=== PATIENT | male | born 1945 | race Caucasian/White ===

== ENCOUNTER 2017-07-22 13:55 | Inpatient (IN) | payer BC ==
--- NOTE | 2017-07-22 14:10 | PDOC ---
History of Present Illness - History of Present Illness Initial Comments: . 07/22/17 14:49 The patient is a 71 yo Male with a significant past medical history of renal cell carcinoma and bladder CA (s/p bladder removal July 2016), who presents to the ED sent by Dr. Mirella Lee for admission of persistent diffuse headache and slight confusion for about a month. As per Dr. Lee, the patient had an MRI revealing mets to the brain. The patient denies follow-up with oncologist s/ p bladder removal a year ago. The patient presents with his neighbor who was coincidentally in the doctor's office with the patient and kindly brought him to the ED as per Dr. Lee's request. Allergies: NKDA PSHx: Bladder removal (2015) PCP: Dr. Mirella Lee <Emma Castellanos - Last Filed: 07/22/17 17:02> <Levi Reveles - Last Filed: 07/22/17 18:21> - General Chief Complaint: Headache Stated Complaint: admission SENT BY PCP, Time Seen by Provider: 07/22/17 14:07 Past History <Emma Castellanos - Last Filed: 07/22/17 17:02> - Past Medical History Cancer: Yes (bladder, brain mets) - Suicide/Smoking/Psychosocial Hx Smoking History: Former smoker Have you smoked in the past 12 months: Yes If you are a former smoker, when did you quit?: 15YRS AGO Information on smoking cessation initiated: No Hx Alcohol Use: No Drug/Substance Use Hx: No Substance Use Type: None Hx Substance Use Treatment: No <Levi Reveles - Last Filed: 07/22/17 18:21> - Past Medical History Allergies/Adverse Reactions: Allergies Allergy/AdvReac Type Severity Reaction Status Date / Time No Known Drug Allergies Allergy Verified 07/22/17 13:58 Home Medications: Ambulatory Orders NK [No Known Home Medication] 06/12/16 Review of Systems - Review of Systems Able to Perform ROS?: Yes Comments:: 07/22/17 15:07 GENERAL/CONSTITUTIONAL: No fever or chills. No weakness. HEAD, EYES, EARS, NOSE AND THROAT: No change in vision. No ear pain or discharge. No sore throat. CARDIOVASCULAR: No chest pain or shortness of breath. RESPIRATORY: No cough, wheezing, or hemoptysis. GASTROINTESTINAL: No nausea, vomiting, diarrhea or constipation. GENITOURINARY: No dysuria, frequency, or change in urination. MUSCULOSKELETAL: No joint or muscle swelling or pain. No neck or back pain. SKIN: No rash NEUROLOGIC: (+)diffuse headache. No vertigo, loss of consciousness, or change in strength/sensation. ENDOCRINE: No increased thirst. No abnormal weight change. HEMATOLOGIC/LYMPHATIC: No anemia, easy bleeding, or history of blood clots. ALLERGIC/IMMUNOLOGIC: No hives or skin allergy. <Emma Castellanos - Last Filed: 07/22/17 17:02> *Physical Exam - Vital Signs Last Vital Signs Temp Pulse Resp BP Pulse Ox 99.4 F 107 H 18 125/71 100 07/22/17 13:58 07/22/17 13:58 07/22/17 13:58 07/22/17 13:58 07/22/17 13:58 - Physical Exam Comments: 07/22/17 15:09 GENERAL: (+) confused and repeating himself. Awake, alert. in no acute distress HEAD: No signs of trauma EYES: PERRLA, EOMI, sclera anicteric, conjunctiva clear ENT: Auricles normal inspection, hearing grossly normal, nares patent, oropharynx clear without exudates. Moist mucosa NECK: Normal ROM, supple, no lymphadenopathy, JVD, or masses LUNGS: Breath sounds equal, clear to auscultation bilaterally. No wheezes, and no crackles HEART: Regular rate and rhythm, normal S1 and S2, no murmurs, rubs or gallops ABDOMEN: Soft, nontender, normoactive bowel sounds. No guarding, no rebound. No masses EXTREMITIES: Normal range of motion, no edema. No clubbing or cyanosis. No cords, erythema, or tenderness NEUROLOGICAL: Cranial nerves II through XII grossly intact. Normal speech, normal gait SKIN: Warm, Dry, normal turgor, no rashes or lesions noted. <Emma Castellanos - Last Filed: 07/22/17 17:02> - Vital Signs Last Vital Signs Temp Pulse Resp BP Pulse Ox 99.4 F 107 H 18 125/71 100 07/22/17 13:58 07/22/17 13:58 07/22/17 13:58 07/22/17 13:58 07/22/17 13:58 <Levi Reveles - Last Filed: 07/22/17 18:21> ED Treatment Course - LABORATORY CBC & Chemistry Diagram: 07/22/17 15:10 07/22/17 15:10 - RADIOLOGY Radiograph Interpretation: 07/22/17 17:01 EXAM#: TYPE/EXAM: RESULT: [id number] CT/ABDOMEN PELVIS CT W/O CONTR [id number] CT/CHEST CT WITHOUT CONTRAST [id number] CT/SOFT TISSUE NECK CT W/O CONTR History of bladder cancer, postop and metastasis CT scan of the neck without intravenous contrast. Contiguous axial scans were obtained followed by coronal and sagittal reconstruction images. The airway is patent and symmetric without narrowing. Parapharyngeal space is clear. Both parotid and both submandibular glands appear unremarkable. No gross enlarged lymph nodes or discrete mass lesion are identified on this noncontrast exam. Small calcified atheromatous plaques at the right and a tiny calcified plaque at the left common carotid bifurcation. Normal size thyroid gland. There is moderate to marked degenerative disc disease at C3-C4 level with anterior and posterior spur formation moderately narrowing the left foramen. There is also minimal retrolisthesis of C3 over C4 likely degenerative. C4-C5 mild degenerative disc disease. C5-C6 moderate degenerative disc disease with mild posterior spur formation. C6-C7 moderate degenerative disc disease with mild posterior spur formation slightly narrowing the neural foramina. Impression: See discussion above. No gross discrete mass lesion or enlarged lymph nodes are identified on this noncontrast exam. Minimal retrolisthesis of C3 over C4, likely degenerative. Multilevel degenerative disc disease in the cervical spine, as described above. No gross focal bone destruction or sclerotic lesion is identified. Please refer to prior bone scan results dated 07/18/2017 CT scan of the chest, abdomen and pelvis without intravenous and oral contrast. Contiguous axial scans were obtained followed with coronal/ sagittal reconstruction images. Compared to prior noncontrast CT scan of the abdomen and pelvis dated 06/05/2016 In the chest, the heart is within normal limits in size. Calcification of the coronary arteries are present. There is minimal pericardial effusion. A right paratracheal lymph node is present measuring 1.7 cm. There is soft tissue fullness anterior to the right mainstem bronchus suggestive of lymphadenopathy, as well that could not be clearly evaluated due to lack of intravenous contrast. There is also prominence of the right hilum suggestive of lymphadenopathy. There is an approximately 2.1 cm pleural-based nodule in the right upper lobe, posteriorly laterally. Another adjacent smaller nodule in the right upper lobe, anteriorly measuring 4.5 mm Other smaller pleural-based nodules are present in the right middle and right lower lobe with the largest measuring 1.4 cm. 6.5 mm nodule in the left lower lobe, laterally with a 1.2 cm nodule in its superior segment. A few nodules in the left upper lobe with the largest measuring 6 mm abutting the fissure. There are mild biapical pleural thickening and small bulla. Mild atelectatic changes in the dependent portion of the right lower lobe with mild pleural thickening. In the abdomen and pelvis, there are multiple faint hypodensities in the liver with the largest in the right hepatic lobe, inferiorly measuring 5.7 cm that are highly suspicious for metastasis. Partially distended stomach limiting evaluation of its wall. Gallbladder is adequately distended with questionable thickening of its wall at the fundus. No gross gallstones are identified. The spleen, pancreas, both adrenal glands and kidneys appear unremarkable. There is mild stranding of the perinephric fat, bilaterally.. Normal size abdominal aorta with atheromatous plaques. There is no evidence of small bowel obstruction. A divergent ileal conduit is seen in the right lower anterior abdomen/pelvic wall. Multiple surgical sutures around the bowel loops in the right hemipelvis. Patient is status post urinary bladder resection. Normal- appearing appendix. Moderate amount of fecal residue in the colon without wall thickening. No free fluid or free air is identified in the abdomen pelvis. Multiple subcentimeter nodular densities in the mesentery is most of which may represent vessels. Cannot rule out subcentimeter mesenteric lymph nodes. There are also subcentimeter retroperitoneal nodular densities likely representing lymph nodes. Evaluation of the bones demonstrates a lytic lesion in the right inferior pubic ramus, medially. A lytic lesion in the left superior pubic ramus , medially at the level of the symphysis pubis. There is also suggestion of a lytic lesion in the left femoral neck subcentimeter sclerotic density in the right iliac bone, posteriorly there is also a tiny sclerotic density in the left pedicle of L3. Deformity in the posterior arch of left 11th rib, likely due to old trauma. No gross focal rib lesion/bone destruction is identified. Focal lytic lesion in T8 vertebral body, posteriorly measuring 1.8 cm Impression: Limited examination due to lack of oral and intravenous contrast administration. Bilateral pulmonary nodules compatible with metastasis. Mediastinal lymphadenopathy. Multiple hypodense liver lesions that are highly suspicious for metastasis. Likely subcentimeter mesenteric and retroperitoneal lymph nodes. The adrenal glands are not enlarged. Status post urinary bladder resection. An ileostomy is present in the right upper pelvic wall. There is no evidence of hydronephrosis. Bone metastasis, as described above. Correlate clinically to determine further evaluation and follow -up. Reported By: Ramonita Charles MD 07/22/17 1700 <Emma Castellanos - Last Filed: 07/22/17 17:02> - LABORATORY CBC & Chemistry Diagram: 07/22/17 15:10 07/22/17 15:10 <Levi Reveles - Last Filed: 07/22/17 18:21> Medical Decision Making - Medical Decision Making 07/22/17 17:04 The patient's case was discussed with Dr. Mirella Lee. Consult for neurology or neurosurgery was suggested by me to Dr. Lee, however , Dr. Lee only requests consult to oncologist, Dr. Joseph. <Emma Castellanos - Last Filed: 07/22/17 17:02> *DC/Admit/Observation/Transfer - Attestations Scribe Attestion: 07/22/17 15:12 Documentation prepared by Emma Castellanos, acting as medical underwriter for Levi Reveles DO <Emma Castellanos - Last Filed: 07/22/17 17:02> - Discharge Dispostion Admit: Yes - Attestations Physician Attestion: 07/22/17 14:10 I, Dr. Levi Reveles, attest that this document has been prepared under my direction and personally reviewed by me in its entirety. I further attest, that it accurately reflects all work, treatment, procedures and medical decision -making performed by me. <Levi Reveles - Last Filed: 07/22/17 18:21> Diagnosis at time of Disposition: Confusion, Malignant neoplasm metastatic from bladder Headache Qualifiers: Headache type: unspecified Headache chronicity pattern: unspecified pattern Intractability: intractable Qualified Code(s): R51 - Headache; R51 - Headache - Discharge Dispostion Condition at time of disposition: Improved - Referrals Referrals: Mirella Lee MD [Primary Care Provider] -
[2017-07-22] MEDS ORDERED: ONDANSETRON 4 MG/2 ML VIAL IVPUSH ONE (14:49)
[2017-07-22] MEDS ORDERED: HYDROmorphone HCL CARPU-JECT 1 MG/1 ML DISP.SYRIN IVPUSH ONE (14:49)
[2017-07-22] MEDS ORDERED: HYDROmorphone HCL CARPU-JECT 1 MG/1 ML DISP.SYRIN ONE (14:58)
[2017-07-22] MEDS ORDERED: ONDANSETRON 4 MG/2 ML VIAL ONE ×2 (14:58→14:59)
[2017-07-22 15:21] LABS: EOSINOPHIL 0.5 % (0-4.5); MCH 25.8 pg (25.7-33.7); MCHC 32.1 g/dl (32.0-35.9); MEAN CELL VOLUME 80.3 fl (80-96); MEAN PLT VOLUME 7.2 fl (7.5-11.1); NEUTROPHILS 87.4 % (42.8-82.8); PLATELET COUNT 390 K/MM3 (134-434); RDW 14.4 % (11.9-15.9)
[2017-07-22 15:25] LABS: URINE APPEARANCE CLOUDY; URINE BILIRUBIN NEGATIVE (NEGATIVE); URINE BLOOD NEGATIVE (NEGATIVE); URINE COLOR YELLOW; URINE GLUCOSE (UA) NEGATIVE (NEGATIVE); URINE KETONE NEGATIVE (NEGATIVE); URINE NITRITE POSITIVE (NEGATIVE); URINE PROTEIN 1+ (NEGATIVE); URINE UROBILINOGEN NEGATIVE mg/dL (0.2-1.0)
[2017-07-22 15:46] LABS: ALBUMIN 2.4 g/dl (3.4-5.0); ALK PHOS 396 U/L (45-117); ANION GAP 9 (8-16); BILIRUBIN,TOTAL 0.3 mg/dL (0.2-1.0); CALCIUM 8.7 mg/dL (8.5-10.1); CO2 28 mmol/L (21-32); CREATININE 1.1 mg/dL (0.7-1.3); GLUCOSE,RANDOM 117 mg/dL (74-106); SGOT/AST 24 U/L (15-37); SGPT/ALT 30 U/L (12-78); TOT PROT 6.3 g/dl (6.4-8.2)
[2017-07-22 17:15] LABS: URINE BACTERIA RARE /hpf (NONE SEEN); URINE MUCUS RARE; URINE RBC 3 /hpf (0-3); URINE WBC 7 /hpf (3-5)
[2017-07-22 18:13] LABS: INR 1.24 (0.82-1.09); PROTHROMBIN TIME (PATIENT) 13.6 SEC (9.98-11.88)
[2017-07-22 20:31] LABS: URINE LEUK ESTERASE Negative (NEGATIVE)
[2017-07-22] MEDS ORDERED: DEXAMETHASONE SOD PHOSPHATE 10 MG/1 ML VIAL IVPB ONE (20:51)
[2017-07-22] MEDS ORDERED: DEXAMETHASONE SOD PHOSPHATE 10 MG/1 ML VIAL ONE (20:54)
[2017-07-22] MEDS ORDERED: ACETAMINOPHEN WITH CODEINE 300MG/30MG TABLET PO PRN (23:03)
[2017-07-22 23:43] VITALS: BMI 23.2
[2017-07-23] MEDS: DEXAMETHASONE SOD PHOSPHATE 4 MG/1 ML VIAL IVPB SCH ×4 (03:14→21:12)
--- NOTE | 2017-07-23 07:39 | PN ---
Progress Note (short form) - Note Progress Note: NEUROSURGERY CONSULT DICTATED h/o renal cell carcinoma and undifferentiated CA of bladder (s/p bladder removal July [address] [facility]) was admitted for persistent diffuse headache and slight confusion for about one month. MRI showed 2 mets to the brain. The patient denies follow-up with oncologist s/p bladder removal a year ago. No Sz, No N/V. Denies weakness, numbness, ataxia. Denies F/C. Had frontal H /a x 1 month and mild mental changes reportedly. + cough with discharge. PE: AF, VSS HEENT- subcutaneous/skull prominence over midline/R parasagittal lesion; Neck- supple; Cor- RRR; Chest- CTA B; Abd- benign, ileostomy osteomy bag; Ext- No sign of DVT A/A/Ox4 CN- intact; Motor- 5/5; Sensation- intact LT; DTR- hyporeflexia; Cerebellar- intact B FTN; Gait- not tested for safety reasons Brain MRI with/without- L peripheral cerebellar cystic rim enhancing lesion; R parietal skull lesion with epidural extension near superior sagittal sinus with some encroachment; mild periventricular small vessel dz; no significant edema CT Chest- multiple lung nodules c/w mets CT abd- multiple hypodense areas of liver c/w mets; T8 lytic met; pubis and iliac bone mets 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
--- NOTE | 2017-07-23 08:59 | CONS ---
DATE OF CONSULTATION: DATE OF DICTATION: 07/23/2017 REQUESTING PHYSICIAN: Mirella Lee MD ENGINEERING GROUP MANAGER: Toni Fatima MD, Neurosurgery. CHIEF COMPLAINT: Brain metastases. HISTORY OF PRESENT ILLNESS: The patient is a 71-year-old right-handed male with history of renal cell carcinoma and differentiated carcinoma of the bladder status post bladder resection with ileal conduit in July of 2016 at [facility], who complains of 1-month history of diffuse frontal headaches as well as slight confusion. The patient has not received chemotherapy after surgery and has not received radiation treatment either. A brain MRI was performed on an outpatient basis and it showed 2 metastases at least. The patient denies any nausea or vomiting, seizure activity, weakness, numbness, ataxia. He has no fevers or chills. He does have some cough with some mucousy discharge. He was a smoker up to 16 years ago when he quit. He was smoking a pack a day for about 30 years prior to that. PAST MEDICAL HISTORY: Significant for renal cell carcinoma, undifferentiated carcinoma of the bladder status post bladder resection and ileal conduit. CURRENT MEDICATIONS: Include dexamethasone, Tylenol with Codeine, and Protonix. ALLERGIES: There are no known drug allergies. FAMILY HISTORY: Noncontributory. SOCIAL HISTORY: He is retired. He is an [id number]. He drinks alcohol socially. He lives at home. REVIEW OF SYSTEMS: Otherwise negative for other major constitutional, head and neck, cardiovascular, pulmonary, gastrointestinal, genitourinary, endocrinologic, neurologic, or psychologic problems except for the above. He states that he has noted a bony subcutaneous palpable nodule over the midline and posteriorly over the parietal region for the past month or so. PHYSICAL EXAMINATION: Vital signs: Temperature is 98.4, blood pressure is 133/69, pulse rate is 83, O2 saturation 96% on room air.. HEENT: Examination demonstrates a relatively firm skull-based nodule near the parietal region near the midline and slightly to the right. Neck: Supple with no carotid bruit. Coronary: Examination demonstrates a regular rhythm. Lungs: Clear bilaterally. Abdomen: Benign. Extremities: Examination shows no signs of DVT. Neurologic: He is awake, alert, and oriented x4. Speech is fluent. Cranial nerve examination is intact 2-12. Motor examination shows 5/5 strength without drift. Sensory examination intact to light touch. Deep tendon reflexes are hyporeflexive throughout. There is no pathologic long tract sign. Gait was not tested for safety reasons. Cerebellar examination shows intact [id number] examination bilaterally. LABORATORY EXAMINATION: Shows white blood cell count of 16, hemoglobin is 11.1 , and platelet count is 390,000. INR is 1.24. Serum sodium is 134, potassium is 4.3 , BUN is 17, creatinine is 1.1. LFTs shows elevated alkaline phosphatase to 396. Total protein 6.3. Albumin is 2.4. MRI of the brain performed on July 17 with and without gadolinium demonstrated a osseous 3 x 2.5 cm lesion near the parasagittal right parietal skull. There is epidural extension that also encroaches on a superior sagittal sinus. There is a second enhancing lytic cystic lesion with rim enhancement posteriorly near the left cerebellum and midline. There is mild surrounding edema. There is no hydrocephalus. CT scan of the chest without contrast demonstrated multiple pulmonary nodules as well as mediastinal lymphadenopathy. There is also hypodense lesion in the liver consistent with metastasis. Mesentery and retroperitoneal lymph nodes were noted, as well. The ileostomy is noted in the right abdomen. Lytic lesion is noted in the right ileum, pubic symphysis, as well as small sclerotic density to the left L3 pedicle. A T8 vertebral lytic lesion is also noted. IMPRESSION: Multifocal metastases from likely bladder cancer from undifferentiated bladder cancer to the brain, skull, axial skeleton, lungs, and liver. RECOMMENDATIONS: The patient presents with 1-month history of increasing headache and some reported confusion. Unfortunately, he was found to have two intracranial lesions, one involving the left cerebellum in a parasagittal plane as well as one in the right parasagittal plane involving the right parietal skull extending to the epidural space, possibly invading the superior sagittal sinus. He also has visceral metastases likely to the liver, abdominal lymph nodes with abdominal lymph node invasion, as well as metastases.to the lungs with mediastinal nodes. CT scan with contrast is recommended to better delineate these lesions. If the patient does indeed have extensive metastatic disease (abdominal viscera and lungs), neurosurgical intervention would not be recommended. The patient is on Decadron for the cerebellar edema. I would recommend baseline medical and radiation oncology input for a coordinated treatment for his systemic disease and possible radiation for the brain metastases. The above was discussed with the patient at bedside and with Dr Lee. All questions were answered. TONI FATIMA M.D. BRANDY/[id number] LEONA
[2017-07-23] MEDS: PANTOPRAZOLE 40 MG TABLET (FP) PO SCH (09:06)
--- NOTE | 2017-07-23 09:23 | HP ---
DATE OF ADMISSION: 07/22/2017 DATE OF DICTATION: 07/23/2017 HISTORY OF PRESENT ILLNESS: This is a 71-year-old male known to have CA of the bladder. He got a bladder removal done about a year ago. After that, he did not want to do any treatment. He came to the office again a month ago with complaints of headache. Also, at that time, he was seen by of Dr. Fallon albert, the oncologist. MRI done showed extensive disease in the brain, and his headache was intractable, so, he got admitted yesterday. He had other body scans which showed extensive metastatic disease in the bones, kidney, lungs, all over the body. He lives alone. Of all his relatives, his sister is the closest relative. I have spoken to her about these findings. This morning he is telling that his headache is a little better. PHYSICAL EXAMINATION: Vital signs: BP is 130/70, pulse 80, respirations 20, temperature 98. HEENT: Unremarkable. Neck: supple. No JVD. Lungs: Clear. Heart: S1, S2 normal. No S3, S4. Abdomen: Soft. Extremities: Legs no edema. Neurologic: Grossly normal. Sometimes he is speaking irrelevantly. LABORATORY REPORTS: WBC 16, hemoglobin 11, hematocrit 34, platelets 390. Chemistry: Sodium 134, potassium 4.3, chloride 97, BUN 17, creatinine 1.1, alkaline phosphatase 396. CT of the chest showed enlarged lymph nodes. Multiple liver lesions are seen. Status post bladder resection. Bone metastases are seen. CT of the head showed multiple lesions, metastatic, including the skull, is involved. IMPRESSION: Cancer of the bladder status post resection, multiple metastatic lesions. PLAN: Oncology consult, neurology consult, neurosurgery consult, and Tylenol for headache. ENOCH SCRUGGS M.D. [id number]
--- NOTE | 2017-07-23 10:01 | CONSULT ---
Consult - text type - Consultation Consultation Note: Neurology History of Present Illness The patient is a 71 yo Male with a significant past medical history of renal cell carcinoma and bladder CA (s/p bladder removal July 2016), who presents to the ED sent by Dr. Mirella Lee for admission of persistent diffuse headache and slight confusion for about a month. Patient had an MRI brain 07/17/17 and showed L cerebellar 1.9X 2X 0.8cm met along with R parietal 3.1 X 2.6 cm met. He has been put on Decadron. NSGY, Dr. Boni Ware consulted and note reviewed. During my encounter, no focal deficits but perseverates on having something done to take it out as soon as possible. Explained plan to patient and desire for oncology involvement. Reassured him goal of care is to be expeditious as possible. Allergies: NKDA PSHx: Bladder removal (2015) PCP: Dr. Mirella Lee - General Chief Complaint: Headache Stated Complaint: admission SENT BY PCP, Time Seen by Provider: 07/22/17 14:07 Past History - Past Medical History Cancer: Yes (bladder, brain mets) - Suicide/Smoking/Psychosocial Hx Smoking History: Former smoker Have you smoked in the past 12 months: Yes If you are a former smoker, when did you quit?: 15YRS AGO Information on smoking cessation initiated: No Hx Alcohol Use: No Drug/Substance Use Hx: No Substance Use Type: None Hx Substance Use Treatment: No - Past Medical History Allergies/Adverse Reactions: Allergies Allergy/AdvReac Type Severity Reaction Status Date / Time No Known Drug Allergies Allergy Verified 07/22/17 13:58 Home Medications: Ambulatory Orders NK [No Known Home Medication] 06/12/16 Review of Systems GENERAL/CONSTITUTIONAL: No fever or chills. No weakness. HEAD, EYES, EARS, NOSE AND THROAT: No change in vision. No ear pain or discharge. No sore throat. CARDIOVASCULAR: No chest pain or shortness of breath. RESPIRATORY: No cough, wheezing, or hemoptysis. GASTROINTESTINAL: No nausea, vomiting, diarrhea or constipation. GENITOURINARY: No dysuria, frequency, or change in urination. MUSCULOSKELETAL: No joint or muscle swelling or pain. No neck or back pain. SKIN: No rash NEUROLOGIC: (+)diffuse headache. No vertigo, loss of consciousness, or change in strength/sensation. ENDOCRINE: No increased thirst. No abnormal weight change. HEMATOLOGIC/LYMPHATIC: No anemia, easy bleeding, or history of blood clots. ALLERGIC/IMMUNOLOGIC: No hives or skin allergy. *Physical Exam Vital Signs Temperature 98.4 F 07/23/17 05:46 Pulse Rate 83 07/23/17 05:46 Respiratory Rate 18 07/23/17 05:46 Blood Pressure 133/69 07/23/17 05:46 O2 Sat by Pulse Oximetry (%) 96 07/23/17 04:00 GENERAL: (+) repeating himself. Awake, alert. in no acute distress HEAD: No signs of trauma EYES: PERRLA, EOMI, sclera anicteric, conjunctiva clear ENT: Auricles normal inspection, hearing grossly normal, nares patent, oropharynx clear without exudates. Moist mucosa NECK: Normal ROM, supple, no lymphadenopathy, JVD, or masses LUNGS: Breath sounds equal, clear to auscultation bilaterally. No wheezes, and no crackles HEART: Regular rate and rhythm, normal S1 and S2, no murmurs, rubs or gallops ABDOMEN: Soft, nontender, normoactive bowel sounds. No guarding, no rebound. No masses EXTREMITIES: Normal range of motion, no edema. No clubbing or cyanosis. No cords, erythema, or tenderness NEUROLOGICAL: Cranial nerves II through XII grossly intact. Normal speech, no facial droop, strength intact b/l, sensory normal SKIN: Warm, Dry, normal turgor, no rashes or lesions noted. CBCD WBC 16.0 K/mm3 (4.0-10.0) H 07/22/17 15:10 RBC 4.30 M/mm3 (4.00-5.60) D 07/22/17 15:10 Hgb 11.1 GM/dL (11.7-16.9) L 07/22/17 15:10 Hct 34.6 % (35.4-49) L 07/22/17 15:10 MCV 80.3 fl (80-96) 07/22/17 15:10 MCHC 32.1 g/dl (32.0-35.9) 07/22/17 15:10 RDW 14.4 % (11.9-15.9) D 07/22/17 15:10 Plt Count 390 K/MM3 (134-434) D 07/22/17 15:10 MPV 7.2 fl (7.5-11.1) L 07/22/17 15:10 CMP Sodium 134 mmol/L (136-145) L 07/22/17 15:10 Potassium 4.3 mmol/L (3.5-5.1) 07/22/17 15:10 Chloride 97 mmol/L (98-107) L D 07/22/17 15:10 Carbon Dioxide 28 mmol/L (21-32) D 07/22/17 15:10 Anion Gap 9 (8-16) 07/22/17 15:10 BUN 17 mg/dL (7-18) D 07/22/17 15:10 Creatinine 1.1 mg/dL (0.7-1.3) D 07/22/17 15:10 Creat Clearance w eGFR > 60 (>60) 07/22/17 15:10 Calcium 8.7 mg/dL (8.5-10.1) 07/22/17 15:10 Total Bilirubin 0.3 mg/dL (0.2-1.0) 07/22/17 15:10 AST 24 U/L (15-37) D 07/22/17 15:10 ALT 30 U/L (12-78) D 07/22/17 15:10 Alkaline Phosphatase 396 U/L (45-117) H D 07/22/17 15:10 Total Protein 6.3 g/dl (6.4-8.2) L 07/22/17 15:10 Albumin 2.4 g/dl (3.4-5.0) L D 07/22/17 15:10 CT scan of the neck without intravenous contrast. Impression: No gross discrete mass lesion or enlarged lymph nodes are identified on this noncontrast exam. Minimal retrolisthesis of C3 over C4, likely degenerative. Multilevel degenerative disc disease in the cervical spine, as described above. No gross focal bone destruction or sclerotic lesion is identified. Please refer to prior bone scan results dated 07/18/2017 CT scan of the chest, abdomen and pelvis without intravenous and oral contrast. Impression: Limited examination due to lack of oral and intravenous contrast administration. Bilateral pulmonary nodules compatible with metastasis. Mediastinal lymphadenopathy. Multiple hypodense liver lesions that are highly suspicious for metastasis. Likely subcentimeter mesenteric and retroperitoneal lymph nodes. The adrenal glands are not enlarged. Status post urinary bladder resection. An ileostomy is present in the right upper pelvic wall. There is no evidence of hydronephrosis. Bone metastasis, as described above. Correlate clinically to determine further evaluation and follow-up. MRI brain reviewed, L cerebellar 1.9X 2X 0.8cm met along with R parietal 3.1 X 2.6 cm met Plan: 71 yo Male with a significant past medical history of renal cell carcinoma and bladder CA (s/p bladder removal July 2016), who presents to the ED sent by Dr. Mirella Lee for admission of persistent diffuse headache and slight confusion for about a month. Patient had an MRI brain 07/17/17 and showed L cerebellar 1.9X 2X 0.8cm met along with R parietal 3.1 X 2.6 cm met. During my encounter, no focal deficits but perseverates on having something done to take it out as soon as possible. Explained plan to patient and desire for oncology involvement. Reassured him goal of care is to be expeditious as possible. He has been put on Decadron. NSGY, Dr. Boni Ware consulted and note reviewed. Monitor glucose on steroids PPI Tension headaches, can give Tylenol, try to avoid sedatives for now Medical Oncology, Radiation Onc consult recommended
--- NOTE | 2017-07-23 10:38 | CONSULT ---
Consult Consult Specialty:: ONCOLOGY Reason for Consultation:: metastatic disease - History of Present Illness History of Present Illness: is a 71 year old male with history : Bladder cancer: diagnosed 2016. Muscle invasive. Did not get an[place]ietta-adjuvant chemotherapy. Underwent Radical cystectomy in 07/2016. He did NOT receive adjuvant chemotherapy. The pathological stage in 07/2016 was [id number]. He did not follow-up post surgery ( Care was at [facility]). In the above path report, prostate adeno ca was also diagnosed. He saw last month, had headaches, referred to us , he was seen by me in the office, and ordered a re-staging w.u to assess the state of the cancer. During the office visit, he was in denial when I explained the reason for the staging w/u as he explained that his cancer was "removed". As part of the imaging studies ordered, on 07/17 MRI brain was done consistent with brain mets. He was asked to come to the ER due to the results of the MR brain. In the ER, he underwent CT c/a/p and neck. consistent with widely metastatic disease. Patient seen and examined this am. Was seen by neuro surgery and neurology. Pt expresses wishes to be done everything as fast as they can be. He feels a "Little" better post dexamethasone and other pain meds. He denies any bowel or bladder issues. - History Source History Provided By: Patient, Medical Record Limitations to Obtaining History: No Limitations - Alcohol/Substance Use Hx Alcohol Use: No - Smoking History Smoking history: Former smoker Have you smoked in the past 12 months: Yes If you are a former smoker, when did you quit?: 15YRS AGO Home Medications - Allergies Allergies/Adverse Reactions: Allergies Allergy/AdvReac Type Severity Reaction Status Date / Time No Known Drug Allergies Allergy Verified 07/22/17 13:58 - Home Medications Home Medications: Ambulatory Orders NK [No Known Home Medication] 06/12/16 Family Disease History - Family Disease History Family History: Denies Review of Systems - Review of Systems Eyes: denies: Blurred Vision, Photophobia, Recent Change in Vision HENT: denies: Difficult Swallowing Neck: denies: Decreased ROM, Lumps Cardiovascular: denies: Chest Pain, Edema, Palpitations, Shortness of Breath Respiratory: reports: Cough Neurological: reports: Dizziness, Headache Hematology/Lymphatic: reports: No Symptoms Physical Exam Vital Signs: Vital Signs Temperature 98.4 F 07/23/17 05:46 Pulse Rate 83 07/23/17 05:46 Respiratory Rate 18 07/23/17 05:46 Blood Pressure 133/69 07/23/17 05:46 O2 Sat by Pulse Oximetry (%) 96 07/23/17 04:00 Constitutional: Yes: No Distress, Anxious Eyes: Yes: Conjunctiva Clear, EOM Intact HENT: Yes: Atraumatic, Normocephalic Neck: Yes: Supple, Trachea Midline Cardiovascular: Yes: Regular Rate and Rhythm Respiratory: Yes: Regular, CTA Bilaterally Gastrointestinal: Yes: Normal Bowel Sounds, Soft Musculoskeletal: No: Back Pain Edema: No Neurological: Yes: Alert, Oriented. No: Aphasia, Confusion Imaging - Results Cat Scan: Report Reviewed MRI: Report Reviewed Assessment/Plan 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 [id number]. ( did not receive Adjuvant chemotherapy) Prostate adenocarcinoma, on no treatment. Now with widely metastatic disease ( brain, bone, Liver, lung). -Likely metastatic bladder, but the biopsy indicated on first Progression, will order US guided Liver biopsy ( pt in agreement) . -Dexamethasone with PPI ppx -Appreciate Neuro and NSG consults, no surgical intervention -RadOnc consult ,to be discussed. -will need systemic chemotherapy going forward. -Multi disciplinary discussion needs to be done in 's case. -No ac for DVT ppx, active brain mets.
--- NOTE | 2017-07-23 15:47 | PN ---
Progress Note (short form) - Note Progress Note: Radiation Oncology (full consult dictated) Pt seen, chart/films reviewed. Likely recurrent bladder ca with mets to brain, calvarium/skeleton, liver, lung , nodes. Review surgical path from [facility]. Agree with bx for pathologic confirmation. Likely candidate for palliative RT to parietal calvarial and cerebellar mets. Cont decadron and analgesics. Cont neurologic monitoring. Palliative care consult.
--- NOTE | 2017-07-23 17:00 | CONS ---
DATE OF CONSULTATION: 07/23/2017 REFERRING PHYSICIAN: Crystal Calvillo M.D. REASON FOR CONSULTATION: Brain metastases. HISTORY OF PRESENT ILLNESS: The patient is a 71-year-old gentleman with a history of bladder cancer status post radical cystectomy with ileal conduit in July 2016 at [facility]. Stage was T4a N2. He received no adjuvant therapy. Of note, there was an incidental prostate cancer on the surgical pathology by report. Per the family, there was a history of cancer 10 years ago and unclear if it is the same cancer or a different cancer. He now presents with a 1-month history of frontal headaches and change in mental status as per the family. An MRI of the brain showed a 2-cm left cerebellar mass with surrounding edema and mass effect on the 4th ventricle and a 2.1-cm enhancing metastasis involving the right parietal bone with epidural invasion, with soft tissue mass involving the superior sagittal sinus. Bone scan confirmed uptake in the right skull metastases as well as the ribs and possibly right iliac bone. CT scan of the neck, chest, abdomen, and pelvis demonstrated diffuse metastases involving the lung, liver, bone, and lymph nodes of the mediastinum and retroperitoneal region. He was seen by neurosurgery, neurology and medical oncology services. He was started on Decadron. A liver biopsy is being considered for pathologic confirmation of recurrent malignancy. He reports that the headaches have improved since starting steroids. We were asked to evaluate for a role for radiation therapy. PAST MEDICAL HISTORY: As noted above. PAST SURGICAL HISTORY: As noted above. ALLERGIES: No known drug allergies. CURRENT MEDICATIONS: Decadron 4 mg every 6 hours, Tylenol No. 3 p.r.n., Protonix daily. SOCIAL HISTORY: He is unmarried, has no children. He has 13 siblings. He was born in [place]. His closest family member, his sister, lives in [place]. 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 He smoked for 30 years, 1 pack per day, until 15 years ago. He is a social alcohol drinker. FAMILY HISTORY: Denies history of malignancy. REVIEW OF SYSTEMS: Denies seizures, nausea, ataxia, blurry or double vision, paresthesias, or weakness. He reports a productive cough. PHYSICAL EXAMINATION: General: In no acute distress. Lying in the hospital bed. Appears agitated. Vital Signs: Temperature 98.2, blood pressure 126/72, pulse 88, respiratory rate 20. HEENT: Moist mucous membranes. Anicteric sclerae. Clear oral cavity. Neck: No adenopathy. Chest: Clear. Heart: Regular. Abdomen: Soft, nontender, with ileostomy bag. No palpable mass or adenopathy. Extremities: No peripheral edema. Musculoskeletal: No spine or CVA tenderness. Neurologic: Alert and oriented. Cranial nerves 2-12 are intact. No sensory level and sensation to light touch is intact. No pronator drift. Motor is 5/5 in all 4 extremities. Coordination is normal. Gait was not tested. PATHOLOGIC DATA: Pending review of prior surgical pathology report. LABORATORY DATA: WBC 16, hemoglobin 11.1, platelets 390,000. Electrolytes within normal limits. BUN 17, creatinine 1.1, calcium 8.7, alkaline phosphatase 396, albumin 2.4. RADIOLOGIC DATA: CT scans as noted above. MRI of the brain as noted above. Bone scan as noted above. IMPRESSION: A 71-year-old gentleman with history of locally advanced bladder cancer status post radical cystectomy and ileal conduit without adjuvant therapy, now with likely metastatic recurrence in the brain, calvarium, skeleton, liver, and lung. From a neurologic standpoint, he is stable on Decadron and headaches have improved. I agree with biopsy for pathologic confirmation of metastatic recurrence. Palliative radiation therapy to the calvarial and intracranial brain metastases will be further considered to help preserve his quality of life and prevent neurologic deterioration and . I would recommend continuing Decadron and analgesics. I spoke with his sister and [id number] at length following the interview. They informed me that the patient does not share much of his medical history with the rest of his family. They inquired about the possibility of a palliative care consult to discuss end of life goals and healthcare proxy, etc. I agree that palliative care consult would be appropriate. We will plan to review the surgical pathology from the cystectomy and follow up the biopsy results. Further treatment recommendations will follow these evaluations. Thank you for the courtesy of this consult. PETAR BENAVIDEZ M.D. MARK/[id number] MTDD
[2017-07-24] MEDS: DEXAMETHASONE SOD PHOSPHATE 4 MG/1 ML VIAL IVPB SCH ×4 (02:05→20:44)
[2017-07-24 07:13] LABS: MCH 25.6 pg (25.7-33.7); MCHC 31.9 g/dl (32.0-35.9); MEAN CELL VOLUME 80.1 fl (80-96); MEAN PLT VOLUME 6.8 fl (7.5-11.1); PLATELET COUNT 465 K/MM3 (134-434); RDW 14.3 % (11.9-15.9); WHITE BLOOD COUNT 18.9 K/mm3 (4.0-10.0)
[2017-07-24 07:31] LABS: INR 1.15 (0.82-1.09); PROTHROMBIN TIME (PATIENT) 12.6 SEC (9.98-11.88)
[2017-07-24 07:35] LABS: ACTIVATED PTT 28.4 SECONDS (26.9-34.4)
[2017-07-24 08:06] LABS: ALBUMIN 2.5 g/dl (3.4-5.0); ANION GAP 10 (8-16); CALCIUM 8.8 mg/dL (8.5-10.1); CO2 27 mmol/L (21-32); GLUCOSE,RANDOM 136 mg/dL (74-106)
[2017-07-24 08:13] LABS: ALK PHOS 461 U/L (45-117); BILIRUBIN,TOTAL 0.3 mg/dL (0.2-1.0); CREATININE 0.9 mg/dL (0.7-1.3); SGOT/AST 23 U/L (15-37); SGPT/ALT 36 U/L (12-78); TOT PROT 6.5 g/dl (6.4-8.2)
--- NOTE | 2017-07-24 08:33 | PN ---
Progress Note (short form) - Note Progress Note: NEUROSURGERY Some frontal headache. Denies weakness, numbness, ataxia. Denies F/C. + mild cough with mucous PE: AF, VSS HEENT- subcutaneous/skull prominence over midline/R parasagittal lesion; Neck- supple; Cor- RRR; Chest- CTA B; Abd- benign, ileostomy osteomy bag; Ext- No sign of DVT A/A/Ox4 CN- intact; Motor- 5/5; Sensation- intact LT; DTR- hyporeflexia; Cerebellar- intact B FTN; Gait- not tested for safety reasons Brain MRI with/without- L peripheral cerebellar cystic rim enhancing lesion; R parietal skull lesion with epidural extension near superior sagittal sinus with some encroachment; mild periventricular small vessel dz; no significant edema CT Chest- multiple lung nodules c/w mets CT abd- multiple hypodense areas of liver c/w mets; T8 lytic met; pubis and iliac bone mets 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
[2017-07-24] MEDS: PANTOPRAZOLE 40 MG TABLET (FP) PO SCH (09:06)
--- NOTE | 2017-07-24 09:41 | PN ---
Progress Note, Physician Chief Complaint: Head ache less History of Present Illness: Dr Mak,s oncology consult and priscilla Palacios radiation oncology consult appreciated Going for liver biopsy today - Current Medication List Current Medications: Active Medications Acetaminophen/Codeine Phosphate (Tylenol # 3 -) 2 tab PO Q6H PRN PRN Reason: PAIN Dexamethasone Sodium Phosphate (Decadron Injection -) 4 mg IVPB Q6H-IV PIOTR Last Admin: 07/24/17 09:06 Dose: 4 mg Pantoprazole Sodium (Protonix -) 40 mg PO DAILY PIOTR Last Admin: 07/24/17 09:06 Dose: 40 mg - Objective Vital Signs: Vital Signs Temperature 98.2 F 07/24/17 05:51 Pulse Rate 82 07/24/17 05:51 Respiratory Rate 20 07/24/17 05:51 Blood Pressure 150/81 07/24/17 05:51 O2 Sat by Pulse Oximetry (%) 96 07/23/17 21:00 Constitutional: Yes: Anxious Eyes: Yes: WNL HENT: Yes: WNL Neck: Yes: WNL Cardiovascular: Yes: WNL Respiratory: Yes: WNL Gastrointestinal: Yes: WNL ...Rectal Exam: Yes: Deferred Genitourinary: Yes: WNL Breast(s): Yes: WNL Musculoskeletal: Yes: WNL Extremities: Yes: WNL Edema: No Psychiatric: Yes: Alert Labs: CBC, BMP 07/24/17 06:00 07/24/17 06:00 INR, PTT INR 1.15 (0.82-1.09) H 07/24/17 06:00 Assessment/Plan Continue decadron
--- NOTE | 2017-07-24 09:56 | PN ---
Progress Note (short form) - Note Progress Note: Neurology History of Present Illness The patient is a 71 yo Male with a significant past medical history of renal cell carcinoma and bladder CA (s/p bladder removal July 2016), who presents to the ED sent by Dr. Mirella Lee for admission of persistent diffuse headache and slight confusion for about a month. Patient had an MRI brain 07/17/17 and showed L cerebellar 1.9X 2X 0.8cm met along with R parietal 3.1 X 2.6 cm met. He has been put on Decadron. NSGY, Dr. Boni Ware consulted and note reviewed. During my encounter, again no focal deficits but perseverates on having something done to take it out as soon as possible. Explained plan to patient and desire for oncology involvement. Reassured him goal of care is to be expeditious as possible. Patient for liver biopsy today and in agreement with procedure. Neurologically stable at this time. Active Medications Acetaminophen/Codeine Phosphate (Tylenol # 3 -) 2 tab PO Q6H PRN PRN Reason: PAIN Dexamethasone Sodium Phosphate (Decadron Injection -) 4 mg IVPB Q6H-IV PIOTR Last Admin: 07/24/17 09:06 Dose: 4 mg Pantoprazole Sodium (Protonix -) 40 mg PO DAILY PIOTR Last Admin: 07/24/17 09:06 Dose: 40 mg *Physical Exam Vital Signs Period Temp Pulse Resp BP Sys/Porras Pulse Ox Last 24 Hr 98.1 F-98.4 F 82-88 20-20 126-150/72-82 96 GENERAL: (+) repeating himself. Awake, alert. in no acute distress HEAD: No signs of trauma EYES: PERRLA, EOMI, sclera anicteric, conjunctiva clear ENT: Auricles normal inspection, hearing grossly normal, nares patent, oropharynx clear without exudates. Moist mucosa NECK: Normal ROM, supple, no lymphadenopathy, JVD, or masses LUNGS: Breath sounds equal, clear to auscultation bilaterally. No wheezes, and no crackles HEART: Regular rate and rhythm, normal S1 and S2, no murmurs, rubs or gallops ABDOMEN: Soft, nontender, normoactive bowel sounds. No guarding, no rebound. No masses EXTREMITIES: Normal range of motion, no edema. No clubbing or cyanosis. No cords, erythema, or tenderness NEUROLOGICAL: Cranial nerves II through XII grossly intact. Normal speech, no facial droop, strength intact b/l, sensory normal SKIN: Warm, Dry, normal turgor, no rashes or lesions noted. CBCD WBC 18.9 K/mm3 (4.0-10.0) H 07/24/17 06:00 RBC 4.58 M/mm3 (4.00-5.60) 07/24/17 06:00 Hgb 11.7 GM/dL (11.7-16.9) 07/24/17 06:00 Hct 36.6 % (35.4-49) 07/24/17 06:00 MCV 80.1 fl (80-96) 07/24/17 06:00 MCHC 31.9 g/dl (32.0-35.9) L 07/24/17 06:00 RDW 14.3 % (11.9-15.9) 07/24/17 06:00 Plt Count 465 K/MM3 (134-434) H 07/24/17 06:00 MPV 6.8 fl (7.5-11.1) L 07/24/17 06:00 CMP Sodium 134 mmol/L (136-145) L 07/24/17 06:00 Potassium 4.5 mmol/L (3.5-5.1) 07/24/17 06:00 Chloride 97 mmol/L (98-107) L 07/24/17 06:00 Carbon Dioxide 27 mmol/L (21-32) 07/24/17 06:00 Anion Gap 10 (8-16) 07/24/17 06:00 BUN 20 mg/dL (7-18) H 07/24/17 06:00 Creatinine 0.9 mg/dL (0.7-1.3) 07/24/17 06:00 Creat Clearance w eGFR > 60 (>60) 07/24/17 06:00 Calcium 8.8 mg/dL (8.5-10.1) 07/24/17 06:00 Total Bilirubin 0.3 mg/dL (0.2-1.0) 07/24/17 06:00 AST 23 U/L (15-37) 07/24/17 06:00 ALT 36 U/L (12-78) 07/24/17 06:00 Alkaline Phosphatase 461 U/L (45-117) H 07/24/17 06:00 Total Protein 6.5 g/dl (6.4-8.2) 07/24/17 06:00 Albumin 2.5 g/dl (3.4-5.0) L 07/24/17 06:00 CT scan of the neck without intravenous contrast. Impression: No gross discrete mass lesion or enlarged lymph nodes are identified on this noncontrast exam. Minimal retrolisthesis of C3 over C4, likely degenerative. Multilevel degenerative disc disease in the cervical spine, as described above. No gross focal bone destruction or sclerotic lesion is identified. Please refer to prior bone scan results dated 07/18/2017 CT scan of the chest, abdomen and pelvis without intravenous and oral contrast. Impression: Limited examination due to lack of oral and intravenous contrast administration. Bilateral pulmonary nodules compatible with metastasis. Mediastinal lymphadenopathy. Multiple hypodense liver lesions that are highly suspicious for metastasis. Likely subcentimeter mesenteric and retroperitoneal lymph nodes. The adrenal glands are not enlarged. Status post urinary bladder resection. An ileostomy is present in the right upper pelvic wall. There is no evidence of hydronephrosis. Bone metastasis, as described above. Correlate clinically to determine further evaluation and follow-up. MRI brain reviewed, L cerebellar 1.9X 2X 0.8cm met along with R parietal 3.1 X 2.6 cm met Plan: 71 yo Male with a significant past medical history of renal cell carcinoma and bladder CA (s/p bladder removal July 2016), who presents to the ED sent by Dr. Mirella Lee for admission of persistent diffuse headache and slight confusion for about a month. Patient had an MRI brain 07/17/17 and showed L cerebellar 1.9X 2X 0.8cm met along with R parietal 3.1 X 2.6 cm met. During my encounter, no focal deficits but perseverates on having something done to take it out as soon as possible. Explained plan to patient and desire for oncology involvement. Reassured him goal of care is to be expeditious as possible. He has been put on Decadron. NSGY, Dr. Boni Ware consulted and note reviewed. Monitor glucose on steroids PPI Tension headaches, can give Tylenol, try to avoid sedatives for now Oncology follow up For liver biopsy today Neurologically stable
--- NOTE | 2017-07-24 11:26 | PN ---
Progress Note (short form) - Note Progress Note: Patient seen and examined this am. No headache he reported. O/E: General: No acute distress HEENT: NCAT Lungs: CTA B/l Abdomen: soft NT ND Extremities: no CCE Temp Pulse Resp BP Pulse Ox 98.1 F 82 20 147/56 96 07/24/17 09:00 07/24/17 09:00 07/24/17 09:00 07/24/17 09:00 07/24/17 09:00 Current Medications Generic Name Dose Route Start Last Admin Trade Name Freq PRN Reason Stop Dose Admin Acetaminophen/Codeine Phosphate 2 tab 07/22/17 23:03 Tylenol # 3 - PO Q6H PRN PAIN Dexamethasone Sodium Phosphate 4 mg 07/23/17 03:00 07/24/17 09:06 Decadron Injection - IVPB 4 mg Q6H-IV PIOTR Administration Pantoprazole Sodium 40 mg 07/23/17 10:00 07/24/17 09:06 Protonix - PO 40 mg DAILY PIOTR Administration CBC, BMP 07/24/17 06:00 07/24/17 06:00 Assessment/Plan: 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 [id number]. ( did not receive Adjuvant chemotherapy) Prostate adenocarcinoma, on no treatment. Now with widely metastatic disease ( brain, bone, Liver, lung). -Likely metastatic bladder -liver biopsy today. -Dexamethasone with PPI ppx -Appreciate Neuro and NSG consults, no surgical intervention -RadOnc consult appreciated -will need systemic chemotherapy going forward. -Multi disciplinary discussion needs to be done in 's case. -today, I have discussed about the possibility of him having a health care proxy and he is hesitant to do that. I have asked him to think about it he will let us know. Palliative care consult placed -I have discussed with this am.
[2017-07-24] MEDS ORDERED: POLYETHYLENE GLYCOL 3350 119 GM BTL PO STA (23:16)
[2017-07-25] MEDS: DEXAMETHASONE SOD PHOSPHATE 4 MG/1 ML VIAL IVPB SCH ×4 (02:05→20:48)
--- NOTE | 2017-07-25 09:39 | PN ---
Progress Note, Physician History of Present Illness: Admitted with head ache Bladder Ca with brain,liver and bone mets - Current Medication List Current Medications: Active Medications Acetaminophen/Codeine Phosphate (Tylenol # 3 -) 2 tab PO Q6H PRN PRN Reason: PAIN Dexamethasone Sodium Phosphate (Decadron Injection -) 4 mg IVPB Q6H-IV PIOTR Last Admin: 07/25/17 02:05 Dose: 4 mg Pantoprazole Sodium (Protonix -) 40 mg PO DAILY PIOTR Last Admin: 07/24/17 09:06 Dose: 40 mg - Objective Vital Signs: Vital Signs Temperature 98.1 F 07/25/17 05:48 Pulse Rate 80 07/25/17 05:48 Respiratory Rate 18 07/25/17 05:48 Blood Pressure 153/78 07/25/17 05:48 O2 Sat by Pulse Oximetry (%) 97 07/24/17 20:53 Constitutional: Yes: Anxious Eyes: Yes: WNL HENT: Yes: WNL Neck: Yes: WNL Cardiovascular: Yes: WNL Respiratory: Yes: WNL Gastrointestinal: Yes: Normal Bowel Sounds Genitourinary: Yes: WNL Musculoskeletal: Yes: WNL Edema: No Neurological: Yes: Alert ...Motor Strength: WNL Psychiatric: Yes: Alert Labs: CBC, BMP 07/24/17 06:00 07/24/17 06:00 INR, PTT INR 1.15 (0.82-1.09) H 07/24/17 06:00 Assessment/Plan Will discuss with his sister will and health care proxy
[2017-07-25] MEDS: PANTOPRAZOLE 40 MG TABLET (FP) PO SCH (09:53)
--- NOTE | 2017-07-25 13:04 | PN ---
Progress Note (short form) - Note Progress Note: Radiation Oncology Denies headaches. Anxious. s/p liver biopsy. Likely recurrent bladder ca with mets to brain, calvarium/skeleton, liver, lung , nodes. Palliative RT to parietal calvarial and cerebellar mets to be considered after pathologic confirmation. Will follow up biopsy result. Cont decadron and analgesics, neurologic monitoring. HCP issues being addressed. Discussed with Dr Calvillo.
--- NOTE | 2017-07-25 13:27 | PN ---
Progress Note (short form) - Note Progress Note: Patient seen and examined this am. No headache reported. He feels he had a headache this morning and did resolve after medications. O/E: General: No acute distress HEENT: NCAT Lungs: CTA B/l Abdomen: soft NT ND Extremities: no CCE Last Vital Signs Temp Pulse Resp BP Pulse Ox 98.1 F 80 18 153/78 97 07/25/17 05:48 07/25/17 05:48 07/25/17 05:48 07/25/17 05:48 07/24/17 20:53 CBC, BMP 07/24/17 06:00 07/24/17 06:00 Current Medications Generic Name Dose Route Start Last Admin Trade Name Freq PRN Reason Stop Dose Admin Acetaminophen/Codeine Phosphate 2 tab 07/22/17 23:03 Tylenol # 3 - PO Q6H PRN PAIN Dexamethasone Sodium Phosphate 4 mg 07/23/17 03:00 07/25/17 09:53 Decadron Injection - IVPB 4 mg Q6H-IV PIOTR Administration Pantoprazole Sodium 40 mg 07/23/17 10:00 07/25/17 09:53 Protonix - PO 40 mg DAILY PIOTR Administration Assessment/Plan: 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 [id number]. ( did not receive Adjuvant chemotherapy) Prostate adenocarcinoma, on no treatment. Now with widely metastatic disease ( brain, bone, Liver, lung). -Likely metastatic bladder -liver biopsy , await results. -c/w Dexamethasone with PPI ppx -RadOn consult appreciated -will need systemic chemotherapy going forward. pt in agreement in the proposed plan. -Multi disciplinary discussion needs to be done in 's case.
[2017-07-26] MEDS: DEXAMETHASONE SOD PHOSPHATE 4 MG/1 ML VIAL IVPB SCH ×4 (02:22→21:00)
--- NOTE | 2017-07-26 08:56 | PN ---
Progress Note, Physician Chief Complaint: Headache persists History of Present Illness: Admitted with metastatic cancer,S/P liver biopsy Will need RT to brain [id number] by chemo - Current Medication List Current Medications: Active Medications Acetaminophen/Codeine Phosphate (Tylenol # 3 -) 2 tab PO Q6H PRN PRN Reason: PAIN Dexamethasone Sodium Phosphate (Decadron Injection -) 4 mg IVPB Q6H-IV PIOTR Last Admin: 07/26/17 02:22 Dose: 4 mg Pantoprazole Sodium (Protonix -) 40 mg PO DAILY IPOTR Last Admin: 07/25/17 09:53 Dose: 40 mg - Objective Vital Signs: Vital Signs Temperature 98.5 F 07/26/17 05:54 Pulse Rate 81 07/26/17 05:54 Respiratory Rate 20 07/26/17 05:54 Blood Pressure 142/77 07/26/17 05:54 O2 Sat by Pulse Oximetry (%) 96 07/25/17 21:00 Constitutional: Yes: Anxious Eyes: Yes: WNL HENT: Yes: WNL Neck: Yes: WNL Cardiovascular: Yes: WNL Respiratory: Yes: WNL Gastrointestinal: Yes: WNL ...Rectal Exam: Yes: Deferred Genitourinary: Yes: WNL Breast(s): Yes: WNL Musculoskeletal: Yes: WNL Extremities: Yes: WNL Edema: No Peripheral Pulses WNL: Yes Integumentary: Yes: WNL Neurological: Yes: Alert Psychiatric: Yes: Alert Labs: CBC, BMP 07/24/17 06:00 07/24/17 06:00 INR, PTT INR 1.15 (0.82-1.09) H 07/24/17 06:00 Assessment/Plan Will discuss with Dr Lopez regarding starting RT while he is here
--- NOTE | 2017-07-26 10:06 | PN ---
Progress Note (short form) - Note Progress Note: Neurology History of Present Illness The patient is a 71 yo Male with a significant past medical history of renal cell carcinoma and bladder CA (s/p bladder removal July 2016), who presents to the ED sent by Dr. Mirella Lee for admission of persistent diffuse headache and slight confusion for about a month. Patient had an MRI brain 07/17/17 and showed L cerebellar 1.9X 2X 0.8cm met along with R parietal 3.1 X 2.6 cm met. He has been put on Decadron. NSGY, Dr. Boni Ware consulted and no neurosurgical intervention. Liver biopsy completed, possibly chemo/rads to brain. Discsused with patient and he was in agreement with plan. Active Medications Acetaminophen/Codeine Phosphate (Tylenol # 3 -) 2 tab PO Q6H PRN PRN Reason: PAIN Dexamethasone Sodium Phosphate (Decadron Injection -) 4 mg IVPB Q6H-IV PIOTR Last Admin: 07/26/17 02:22 Dose: 4 mg Pantoprazole Sodium (Protonix -) 40 mg PO DAILY PIOTR Last Admin: 07/25/17 09:53 Dose: 40 mg *Physical Exam Vital Signs Temperature 98.5 F 07/26/17 05:54 Pulse Rate 81 07/26/17 05:54 Respiratory Rate 20 07/26/17 05:54 Blood Pressure 142/77 07/26/17 05:54 O2 Sat by Pulse Oximetry (%) 96 07/25/17 21:00 GENERAL: (+) repeating himself. Awake, alert. in no acute distress HEAD: No signs of trauma EYES: PERRLA, EOMI, sclera anicteric, conjunctiva clear ENT: Auricles normal inspection, hearing grossly normal, nares patent, oropharynx clear without exudates. Moist mucosa NECK: Normal ROM, supple, no lymphadenopathy, JVD, or masses LUNGS: Breath sounds equal, clear to auscultation bilaterally. No wheezes, and no crackles HEART: Regular rate and rhythm, normal S1 and S2, no murmurs, rubs or gallops ABDOMEN: Soft, nontender, normoactive bowel sounds. No guarding, no rebound. No masses EXTREMITIES: Normal range of motion, no edema. No clubbing or cyanosis. No cords, erythema, or tenderness NEUROLOGICAL: Cranial nerves II through XII grossly intact. Normal speech, no facial droop, strength intact b/l, sensory normal SKIN: Warm, Dry, normal turgor, no rashes or lesions noted. CBCD WBC 18.9 K/mm3 (4.0-10.0) H 07/24/17 06:00 RBC 4.58 M/mm3 (4.00-5.60) 07/24/17 06:00 Hgb 11.7 GM/dL (11.7-16.9) 07/24/17 06:00 Hct 36.6 % (35.4-49) 07/24/17 06:00 MCV 80.1 fl (80-96) 07/24/17 06:00 MCHC 31.9 g/dl (32.0-35.9) L 07/24/17 06:00 RDW 14.3 % (11.9-15.9) 07/24/17 06:00 Plt Count 465 K/MM3 (134-434) H 07/24/17 06:00 MPV 6.8 fl (7.5-11.1) L 07/24/17 06:00 CMP Sodium 134 mmol/L (136-145) L 07/24/17 06:00 Potassium 4.5 mmol/L (3.5-5.1) 07/24/17 06:00 Chloride 97 mmol/L (98-107) L 07/24/17 06:00 Carbon Dioxide 27 mmol/L (21-32) 07/24/17 06:00 Anion Gap 10 (8-16) 07/24/17 06:00 BUN 20 mg/dL (7-18) H 07/24/17 06:00 Creatinine 0.9 mg/dL (0.7-1.3) 07/24/17 06:00 Creat Clearance w eGFR > 60 (>60) 07/24/17 06:00 Calcium 8.8 mg/dL (8.5-10.1) 07/24/17 06:00 Total Bilirubin 0.3 mg/dL (0.2-1.0) 07/24/17 06:00 AST 23 U/L (15-37) 07/24/17 06:00 ALT 36 U/L (12-78) 07/24/17 06:00 Alkaline Phosphatase 461 U/L (45-117) H 07/24/17 06:00 Total Protein 6.5 g/dl (6.4-8.2) 07/24/17 06:00 Albumin 2.5 g/dl (3.4-5.0) L 07/24/17 06:00 CT scan of the neck without intravenous contrast. Impression: No gross discrete mass lesion or enlarged lymph nodes are identified on this noncontrast exam. Minimal retrolisthesis of C3 over C4, likely degenerative. Multilevel degenerative disc disease in the cervical spine, as described above. No gross focal bone destruction or sclerotic lesion is identified. Please refer to prior bone scan results dated 07/18/2017 CT scan of the chest, abdomen and pelvis without intravenous and oral contrast. Impression: Limited examination due to lack of oral and intravenous contrast administration. Bilateral pulmonary nodules compatible with metastasis. Mediastinal lymphadenopathy. Multiple hypodense liver lesions that are highly suspicious for metastasis. Likely subcentimeter mesenteric and retroperitoneal lymph nodes. The adrenal glands are not enlarged. Status post urinary bladder resection. An ileostomy is present in the right upper pelvic wall. There is no evidence of hydronephrosis. Bone metastasis, as described above. Correlate clinically to determine further evaluation and follow-up. MRI brain reviewed, L cerebellar 1.9X 2X 0.8cm met along with R parietal 3.1 X 2.6 cm met Plan: 71 yo Male with a significant past medical history of renal cell carcinoma and bladder CA (s/p bladder removal July 2016), who presents to the ED sent by Dr. Mirella Lee for admission of persistent diffuse headache and slight confusion for about a month. Patient had an MRI brain 07/17/17 and showed L cerebellar 1.9X 2X 0.8cm met along with R parietal 3.1 X 2.6 cm met. During my encounter, no focal deficits, no surgical intervention Possible chemo/rads to brain On IV steroids Monitor glucose on steroids PPI Tension headaches, can give Tylenol, try to avoid sedatives for now Headaches improved Oncology follow up Liver biopsy complete, awaiting report Neurologically stable
[2017-07-26] MEDS: PANTOPRAZOLE 40 MG TABLET (FP) PO SCH (10:23)
--- NOTE | 2017-07-26 10:41 | PN ---
Progress Note (short form) - Note Progress Note: Patient seen and examined this am. today, he still has headache he says. Otherwise ,no other complains. expressed his anxiety , that he can't "wait" any longer and something needs to be done. Explained him the process of wait for the pathology to come back. O/E: General: No acute distress HEENT: NCAT Lungs: CTA B/l Abdomen: soft NT ND Extremities: no CCE Last Vital Signs Temp Pulse Resp BP Pulse Ox 97 F L 92 H 18 146/79 96 07/26/17 10:33 07/26/17 10:33 07/26/17 10:33 07/26/17 10:33 07/25/17 21:00 CBC, BMP 07/24/17 06:00 07/24/17 06:00 Current Medications Generic Name Dose Route Start Last Admin Trade Name Freq PRN Reason Stop Dose Admin Acetaminophen/Codeine Phosphate 2 tab 07/26/17 03:06 Tylenol # 3 - PO Q6H PRN PAIN Dexamethasone Sodium Phosphate 4 mg 07/23/17 03:00 07/26/17 10:23 Decadron Injection - IVPB 4 mg Q6H-IV PIOTR Administration Pantoprazole Sodium 40 mg 07/23/17 10:00 07/26/17 10:23 Protonix - PO 40 mg DAILY PIOTR Administration Assessment/Plan: 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 [id number]. ( did not receive Adjuvant chemotherapy) Prostate adenocarcinoma, on no treatment. Now with widely metastatic disease ( brain, bone, Liver, lung). -Likely metastatic bladder -liver biopsy , spoke to pathology, final results to be out in a day or so, prelim likely urothelial, but will wait for final report. -c/w Dexamethasone with PPI ppx -[facility] consult appreciated, d/w , will update about the preliminary diagnosis. -will need systemic chemotherapy going forward. pt in agreement in the proposed plan.
[2017-07-26] MEDS: ACETAMINOPHEN WITH CODEINE 300MG/30MG TABLET PO PRN ×2 (14:47→22:30)
--- NOTE | 2017-07-26 14:58 | PN ---
Progress Note (short form) - Note Progress Note: Radiation Oncology Occ headaches. s/p liver biopsy, prelim path suggests urothelial metastasis, stains pending. Likely recurrent bladder ca with mets to brain, calvarium/skeleton, liver, lung , nodes. Palliative RT to parietal calvarial and cerebellar mets to be considered after pathologic confirmation. Follow up final pathology report. Cont decadron and analgesics, neurologic monitoring. Discussed with pathology and Dr Calvillo. Will consider starting RT on Mon/Tue.
--- NOTE | 2017-07-26 16:19 | PATH ---
Surgical Pathology Report Patient Name: LASHAWN DEAL Med. Rec. #: [id number] /Age/Gender: 1945 (Age: 71) / M Account: [id number] Location: [facility] MED/SURG Taken: 07/24/2017 Received: 07/24/2017 Reported: 07/26/2017 Physicians: Cami Mann M.D. 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 (SEE NOTE) Note: Immunohistochemical stains performed at [facility] demonstrate positivity for CK7 and CK20 in the carcinoma. Additional immunohistochemical stains performed at [place], [place] ([id number]) show positivity for uroplakin, DENI-3, and high molecular weight cytokeratin (HMWCK) in the carcinoma. This immunoprofile is consistent with urothelial origin. Prior history of high-grade urothelial carcinoma is noted. Case discussed with Dr. Calvillo on 07/26/17. Electronically Signed Danisha Bahena M.D. Gross Description Received in formalin labeled "liver tissue," are 7 purvis fragments of soft tissue ranging from 0.1-0.9 cm in length and averaging 0.1 cm diameter. The specimens are submitted in toto in one cassette. /07/24/201707/24/2017
[2017-07-27] MEDS: DEXAMETHASONE SOD PHOSPHATE 4 MG/1 ML VIAL IVPB SCH ×4 (02:20→22:05)
[2017-07-27] MEDS: PANTOPRAZOLE 40 MG TABLET (FP) PO SCH (09:03)
--- NOTE | 2017-07-27 09:10 | PN ---
Progress Note, Physician Chief Complaint: Headache less History of Present Illness: Dr Haider note noted Case discussed with Dr Mak Patient needs RT first followed by chemo - Current Medication List Current Medications: Active Medications Acetaminophen/Codeine Phosphate (Tylenol # 3 -) 2 tab PO Q6H PRN PRN Reason: PAIN Last Admin: 07/26/17 22:30 Dose: 2 tab Dexamethasone Sodium Phosphate (Decadron Injection -) 4 mg IVPB Q6H-IV PIOTR Last Admin: 07/27/17 08:59 Dose: 4 mg Pantoprazole Sodium (Protonix -) 40 mg PO DAILY PIOTR Last Admin: 07/27/17 09:03 Dose: 40 mg - Objective Vital Signs: Vital Signs Temperature 98.3 F 07/27/17 05:40 Pulse Rate 80 07/27/17 05:40 Respiratory Rate 20 07/27/17 05:40 Blood Pressure 148/79 07/27/17 05:40 O2 Sat by Pulse Oximetry (%) 97 07/26/17 21:00 Constitutional: Yes: No Distress Eyes: Yes: WNL HENT: Yes: WNL Neck: Yes: WNL Cardiovascular: Yes: WNL Respiratory: Yes: WNL Gastrointestinal: Yes: WNL ...Rectal Exam: Yes: Deferred Genitourinary: Yes: WNL Musculoskeletal: Yes: WNL, Muscle Weakness Edema: No Peripheral Pulses WNL: Yes Integumentary: Yes: WNL Neurological: Yes: Alert Psychiatric: Yes: WNL Labs: CBC, BMP 07/24/17 06:00 07/24/17 06:00 INR, PTT INR 1.15 (0.82-1.09) H 07/24/17 06:00 Assessment/Plan Continue present trt
--- NOTE | 2017-07-27 11:46 | PN ---
Progress Note (short form) - Note Progress Note: Neurology History of Present Illness The patient is a 71 yo Male with a significant past medical history of renal cell carcinoma and bladder CA (s/p bladder removal July 2016), who presents to the ED sent by Dr. Mirella Lee for admission of persistent diffuse headache and slight confusion for about a month. Patient had an MRI brain 07/17/17 and showed L cerebellar 1.9X 2X 0.8cm met along with R parietal 3.1 X 2.6 cm met. He has been put on Decadron. NSGY, Dr. Boni Ware consulted and no neurosurgical intervention. Liver biopsy completed, plan is for radiation then chemo. Patient irritable this AM, stating he hasn't be told anything and that nothing is happening. Attempted to inform him of workup that has been done and plan. Active Medications Acetaminophen/Codeine Phosphate (Tylenol # 3 -) 2 tab PO Q6H PRN PRN Reason: PAIN Last Admin: 07/26/17 22:30 Dose: 2 tab Dexamethasone Sodium Phosphate (Decadron Injection -) 4 mg IVPB Q6H-IV PIOTR Last Admin: 07/27/17 08:59 Dose: 4 mg Pantoprazole Sodium (Protonix -) 40 mg PO DAILY PIOTR Last Admin: 07/27/17 09:03 Dose: 40 mg *Physical Exam Vital Signs Period Temp Pulse Resp BP Sys/Porras Pulse Ox Last 24 Hr 97.9 F-98.3 F 80-87 20-20 142-148/79-89 97 GENERAL: (+) repeating himself. Awake, alert. in no acute distress HEAD: No signs of trauma EYES: PERRLA, EOMI, sclera anicteric, conjunctiva clear ENT: Auricles normal inspection, hearing grossly normal, nares patent, oropharynx clear without exudates. Moist mucosa NECK: Normal ROM, supple, no lymphadenopathy, JVD, or masses LUNGS: Breath sounds equal, clear to auscultation bilaterally. No wheezes, and no crackles HEART: Regular rate and rhythm, normal S1 and S2, no murmurs, rubs or gallops ABDOMEN: Soft, nontender, normoactive bowel sounds. No guarding, no rebound. No masses EXTREMITIES: Normal range of motion, no edema. No clubbing or cyanosis. No cords, erythema, or tenderness NEUROLOGICAL: Cranial nerves II through XII grossly intact. Normal speech, no facial droop, strength intact b/l, sensory normal SKIN: Warm, Dry, normal turgor, no rashes or lesions noted. CBCD WBC 18.9 K/mm3 (4.0-10.0) H 07/24/17 06:00 RBC 4.58 M/mm3 (4.00-5.60) 07/24/17 06:00 Hgb 11.7 GM/dL (11.7-16.9) 07/24/17 06:00 Hct 36.6 % (35.4-49) 07/24/17 06:00 MCV 80.1 fl (80-96) 07/24/17 06:00 MCHC 31.9 g/dl (32.0-35.9) L 07/24/17 06:00 RDW 14.3 % (11.9-15.9) 07/24/17 06:00 Plt Count 465 K/MM3 (134-434) H 07/24/17 06:00 MPV 6.8 fl (7.5-11.1) L 07/24/17 06:00 CMP Sodium 134 mmol/L (136-145) L 07/24/17 06:00 Potassium 4.5 mmol/L (3.5-5.1) 07/24/17 06:00 Chloride 97 mmol/L (98-107) L 07/24/17 06:00 Carbon Dioxide 27 mmol/L (21-32) 07/24/17 06:00 Anion Gap 10 (8-16) 07/24/17 06:00 BUN 20 mg/dL (7-18) H 07/24/17 06:00 Creatinine 0.9 mg/dL (0.7-1.3) 07/24/17 06:00 Creat Clearance w eGFR > 60 (>60) 07/24/17 06:00 Calcium 8.8 mg/dL (8.5-10.1) 07/24/17 06:00 Total Bilirubin 0.3 mg/dL (0.2-1.0) 07/24/17 06:00 AST 23 U/L (15-37) 07/24/17 06:00 ALT 36 U/L (12-78) 07/24/17 06:00 Alkaline Phosphatase 461 U/L (45-117) H 07/24/17 06:00 Total Protein 6.5 g/dl (6.4-8.2) 07/24/17 06:00 Albumin 2.5 g/dl (3.4-5.0) L 07/24/17 06:00 CT scan of the neck without intravenous contrast. Impression: No gross discrete mass lesion or enlarged lymph nodes are identified on this noncontrast exam. Minimal retrolisthesis of C3 over C4, likely degenerative. Multilevel degenerative disc disease in the cervical spine, as described above. No gross focal bone destruction or sclerotic lesion is identified. Please refer to prior bone scan results dated 07/18/2017 CT scan of the chest, abdomen and pelvis without intravenous and oral contrast. Impression: Limited examination due to lack of oral and intravenous contrast administration. Bilateral pulmonary nodules compatible with metastasis. Mediastinal lymphadenopathy. Multiple hypodense liver lesions that are highly suspicious for metastasis. Likely subcentimeter mesenteric and retroperitoneal lymph nodes. The adrenal glands are not enlarged. Status post urinary bladder resection. An ileostomy is present in the right upper pelvic wall. There is no evidence of hydronephrosis. Bone metastasis, as described above. Correlate clinically to determine further evaluation and follow-up. MRI brain reviewed, L cerebellar 1.9X 2X 0.8cm met along with R parietal 3.1 X 2.6 cm met Plan: 71 yo Male with a significant past medical history of renal cell carcinoma and bladder CA (s/p bladder removal July 2016), who presents to the ED sent by Dr. Mirella Lee for admission of persistent diffuse headache and slight confusion for about a month. Patient had an MRI brain 07/17/17 and showed L cerebellar 1.9X 2X 0.8cm met along with R parietal 3.1 X 2.6 cm met. During my encounter, no focal deficits, no surgical intervention Possible chemo/rads to brain Remains On IV steroids Monitor glucose on steroids PPI Tension headaches, can give Tylenol, try to avoid sedatives for now Headaches improved Oncology follow up Liver biopsy complete, awaiting report Likely for radiation then chemo Neurologically stable
--- NOTE | 2017-07-27 14:16 | PN ---
Progress Note (short form) - Note Progress Note: Progress Note (short form) - Note Progress Note: Patient seen and examined this am. today, he just wants to know whether he will be ok once he starts treatment. O/E: General: No acute distress HEENT: NCAT Extremities: no CCE CBC, BMP 07/24/17 06:00 07/24/17 06:00 Vital Signs Period Temp Pulse Resp BP Sys/Porras Pulse Ox Last 24 Hr 97.8 F-98.3 F 80-97 20-20 140-148/79-89 97-97 Active Medications Generic Name Dose Route Start Last Admin Trade Name Freq PRN Reason Stop Dose Admin Acetaminophen/Codeine Phosphate 2 tab 07/26/17 03:06 07/26/17 22:30 Tylenol # 3 - PO 2 tab Q6H PRN Administration PAIN Dexamethasone Sodium Phosphate 4 mg 07/23/17 03:00 07/27/17 08:59 Decadron Injection - IVPB 4 mg Q6H-IV PIOTR Administration Pantoprazole Sodium 40 mg 07/23/17 10:00 07/27/17 09:03 Protonix - PO 40 mg DAILY PIOTR Administration Assessment/Plan: 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 [id number]. ( did not receive Adjuvant chemotherapy) Prostate adenocarcinoma, on no treatment. Now with widely metastatic disease ( brain, bone, Liver, lung). -Likely metastatic bladder -liver biopsy , final results to be out in a day or so, prelim likely urothelial, but will wait for final report. -c/w Dexamethasone with PPI ppx -[facility] consult appreciated, d/w , will update about the preliminary diagnosis. -will need systemic chemotherapy going forward. pt in agreement in the proposed plan.
[2017-07-27] MEDS: ACETAMINOPHEN WITH CODEINE 300MG/30MG TABLET PO PRN (22:58)
[2017-07-28] MEDS: DEXAMETHASONE SOD PHOSPHATE 4 MG/1 ML VIAL IVPB SCH ×4 (03:22→21:25)
[2017-07-28] MEDS: PANTOPRAZOLE 40 MG TABLET (FP) PO SCH (09:30)
--- NOTE | 2017-07-28 10:17 | PN ---
Progress Note (short form) - Note Progress Note: NEUROSURGERY Mild frontal headache. Denies weakness, numbness, ataxia. Denies F/C. PE: AF, VSS HEENT- subcutaneous/skull prominence over midline/R parasagittal lesion; Neck- supple; Cor- RRR; Chest- CTA B; Abd- benign, ileostomy bag; Ext- No sign of DVT A/A/Ox4 CN- intact; Motor- 5/5; Sensation- intact LT; DTR- hyporeflexia; Cerebellar- intact B FTN Brain MRI with/without- L peripheral cerebellar cystic rim enhancing lesion; R parietal skull lesion with epidural extension near superior sagittal sinus with some encroachment; mild periventricular small vessel dz; no significant edema CT Chest- multiple lung nodules c/w mets CT abd- multiple hypodense areas of liver c/w mets; T8 lytic met; pubis and iliac bone mets 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
--- NOTE | 2017-07-28 11:25 | PN ---
Progress Note, Physician Chief Complaint: No new complaints History of Present Illness: Admitted with bladder Ca with brain,bone and liver mets - Current Medication List Current Medications: Active Medications Acetaminophen/Codeine Phosphate (Tylenol # 3 -) 2 tab PO Q6H PRN PRN Reason: PAIN Last Admin: 07/27/17 22:58 Dose: 2 tab Dexamethasone Sodium Phosphate (Decadron Injection -) 4 mg IVPB Q6H-IV PIOTR Last Admin: 07/28/17 09:30 Dose: 4 mg Pantoprazole Sodium (Protonix -) 40 mg PO DAILY PIOTR Last Admin: 07/28/17 09:30 Dose: 40 mg - Objective Vital Signs: Vital Signs Temperature 98.3 F 07/28/17 06:12 Pulse Rate 77 07/28/17 06:12 Respiratory Rate 20 07/28/17 06:12 Blood Pressure 143/76 07/28/17 06:12 O2 Sat by Pulse Oximetry (%) 97 07/27/17 21:00 Constitutional: Yes: Calm Eyes: Yes: WNL HENT: Yes: WNL Neck: Yes: WNL Cardiovascular: Yes: WNL Respiratory: Yes: WNL Gastrointestinal: Yes: WNL ...Rectal Exam: Yes: Deferred Genitourinary: Yes: Hematuria Breast(s): Yes: WNL Musculoskeletal: Yes: WNL Extremities: Yes: WNL Edema: No Neurological: Yes: Alert Labs: CBC, BMP 07/24/17 06:00 07/24/17 06:00 INR, PTT INR 1.15 (0.82-1.09) H 07/24/17 06:00 Assessment/Plan Continue same trt
[2017-07-28] MEDS: ACETAMINOPHEN WITH CODEINE 300MG/30MG TABLET PO PRN (21:29)
[2017-07-29] MEDS: DEXAMETHASONE SOD PHOSPHATE 4 MG/1 ML VIAL IVPB SCH ×4 (02:11→20:35)
[2017-07-29] MEDS: ACETAMINOPHEN WITH CODEINE 300MG/30MG TABLET PO PRN ×2 (06:21→20:43)
--- NOTE | 2017-07-29 09:14 | PN ---
Progress Note, Physician Chief Complaint: Head ache less History of Present Illness: Path report of liver biopsy showed mets from bladder Ca Case discussed with Dr Lopez,will start Rt after hospital approve it - Current Medication List Current Medications: Active Medications Acetaminophen/Codeine Phosphate (Tylenol # 3 -) 2 tab PO Q6H PRN Last Admin: 07/29/17 06:21 Dose: 2 tab Dexamethasone Sodium Phosphate (Decadron Injection -) 4 mg IVPB Q6H-IV PIOTR Last Admin: 07/29/17 02:11 Dose: 4 mg Pantoprazole Sodium (Protonix -) 40 mg PO DAILY PIOTR Last Admin: 07/28/17 09:30 Dose: 40 mg - Objective Vital Signs: Vital Signs Temperature 98.5 F 07/29/17 05:55 Pulse Rate 92 H 07/29/17 05:55 Respiratory Rate 20 07/29/17 05:55 Blood Pressure 139/85 07/29/17 05:55 O2 Sat by Pulse Oximetry (%) 96 07/28/17 21:00 Constitutional: Yes: Calm Eyes: Yes: WNL, Occular Prosthesis Neck: Yes: WNL Cardiovascular: Yes: WNL Respiratory: Yes: WNL Gastrointestinal: Yes: Normal Bowel Sounds ...Rectal Exam: Yes: Deferred Breast(s): Yes: WNL Musculoskeletal: Yes: WNL Extremities: Yes: WNL Edema: No Peripheral Pulses WNL: Yes Neurological: Yes: Alert ...Motor Strength: WNL Labs: CBC, BMP 07/24/17 06:00 07/24/17 06:00 INR, PTT INR 1.15 (0.82-1.09) H 07/24/17 06:00 Assessment/Plan Rt for the brain mets
[2017-07-29] MEDS: PANTOPRAZOLE 40 MG TABLET (FP) PO SCH (10:03)
--- NOTE | 2017-07-29 14:53 | PN ---
Progress Note (short form) - Note Progress Note: Radiation Oncology Occ headaches. s/p liver biopsy, path + urothelial metastasis. Recurrent bladder ca with mets to brain, calvarium/skeleton, liver, lung, nodes. Palliative RT to parietal calvarial and cerebellar mets recommended. Cont decadron and analgesics, neurologic monitoring. Will proceed with inpt RT for initial 2-3 fractions and if pt tolerates and remains stable, may continue RT as outpatient. Hospital approval requested. Will proceed as soon as feasible.
--- NOTE | 2017-07-29 16:48 | PN ---
Progress Note (short form) - Note Progress Note: Patient seen and examined Denies any complaints Last Vital Signs Temp Pulse Resp BP Pulse Ox 98.1 F 103 H 20 152/82 97 07/29/17 15:52 07/29/17 15:52 07/29/17 15:52 07/29/17 15:52 07/29/17 10:00 Cor: RSR, No murmurs, No gallops Lungs: Clear to P&A Abd: Soft, Normal bowel sounds, No organomegaly Ext:No significant edema Skin: No rashes, Integument intact Labs/Meds reviewed A/P 71 y/o patient with recurrent bladder cancer s/p liver biopsy, path + urothelial metastasis. Recurrent bladder ca with mets to brain, calvarium/skeleton, liver, lung, nodes. Palliative RT to parietal calvarial and cerebellar mets Cont decadron and analgesics, neurologic monitoring
[2017-07-30] MEDS: DEXAMETHASONE SOD PHOSPHATE 4 MG/1 ML VIAL IVPB SCH ×3 (03:33→15:04)
[2017-07-30] MEDS: ACETAMINOPHEN WITH CODEINE 300MG/30MG TABLET PO PRN (08:56)
--- NOTE | 2017-07-30 09:09 | PN ---
Progress Note, Physician Chief Complaint: Head ache persists History of Present Illness: Dr Lopez,s note read,paliative RT started - Current Medication List Current Medications: Active Medications Acetaminophen/Codeine Phosphate (Tylenol # 3 -) 2 tab PO Q6H PRN Last Admin: 07/30/17 08:56 Dose: 2 tab Dexamethasone Sodium Phosphate (Decadron Injection -) 4 mg IVPB Q6H-IV PIOTR Last Admin: 07/30/17 08:47 Dose: 4 mg Pantoprazole Sodium (Protonix -) 40 mg PO DAILY PIOTR Last Admin: 07/29/17 10:03 Dose: 40 mg - Objective Vital Signs: Vital Signs Temperature 97.6 F 07/30/17 06:00 Pulse Rate 90 07/30/17 09:00 Respiratory Rate 20 07/30/17 09:00 Blood Pressure 156/79 07/30/17 09:00 O2 Sat by Pulse Oximetry (%) 98 07/29/17 21:00 Constitutional: Yes: Calm Eyes: Yes: WNL HENT: Yes: WNL Neck: Yes: WNL Cardiovascular: Yes: WNL Respiratory: Yes: WNL Gastrointestinal: Yes: Normal Bowel Sounds Genitourinary: Yes: WNL Breast(s): Yes: Left Neurological: Yes: Alert Labs: CBC, BMP 07/24/17 06:00 07/24/17 06:00 INR, PTT INR 1.15 (0.82-1.09) H 07/24/17 06:00 Assessment/Plan Repeat labs in am
--- NOTE | 2017-07-30 12:16 | PN ---
Progress Note (short form) - Note Progress Note: Radiation Oncology Occ headaches. s/p liver biopsy, path + urothelial metastasis. Recurrent bladder ca with mets to brain, calvarium/skeleton, liver, lung, nodes. Palliative RT to parietal calvarial and cerebellar mets recommended. Cont decadron and analgesics, neurologic monitoring. Will proceed with inpt RT for initial 2-3 fractions and if pt tolerates and remains stable, may continue RT as outpatient. WBRT started today. Tolerated tx. Will cont. If stable, may d/c home saturday and cont outpatient RT on Sat.
[2017-07-30] MEDS ORDERED: PT OWN MED DRAWER 7, Y5N ONE (12:33)
[2017-07-30] MEDS: PANTOPRAZOLE 40 MG TABLET (FP) PO SCH (13:10)
--- NOTE | 2017-07-30 15:54 | PN ---
Progress Note (short form) - Note Progress Note: Patient seen and examined this am. tolerating rt well. requesting pain meds and stool softeners O/E: General: No acute distress HEENT: NCAT Lungs: CTA B/l Abdomen: soft NT ND Extremities: no CCE Last Vital Signs Temp Pulse Resp BP Pulse Ox 97 F L 92 H 18 146/79 96 07/26/17 10:33 07/26/17 10:33 07/26/17 10:33 07/26/17 10:33 07/25/17 21:00 CBC, BMP 07/24/17 06:00 07/24/17 06:00 Current Medications Generic Name Dose Route Start Last Admin Trade Name Freq PRN Reason Stop Dose Admin Acetaminophen/Codeine Phosphate 2 tab 07/26/17 03:06 Tylenol # 3 - PO Q6H PRN PAIN Dexamethasone Sodium Phosphate 4 mg 07/23/17 03:00 07/26/17 10:23 Decadron Injection - IVPB 4 mg Q6H-IV PIOTR Administration Pantoprazole Sodium 40 mg 07/23/17 10:00 07/26/17 10:23 Protonix - PO 40 mg DAILY PIOTR Administration Assessment/Plan: 71 y/o patient with recurrent bladder cancer s/p liver biopsy, path + urothelial metastasis. Recurrent bladder ca with mets to brain, calvarium/skeleton, liver, lung, nodes. Palliative RT to parietal calvarial and cerebellar mets likely dc on saturday with OP f/u. Cont decadron and analgesics, neurologic monitoring stool softeners
[2017-07-30] MEDS: DEXAMETHASONE 4 MG TABLET (FP) PO SCH ×3 (16:16→23:01)
[2017-07-30] MEDS: POLYETHYLENE GLYCOL 3350 119 GM BTL PO SCH (16:16)
[2017-07-31] MEDS: DEXAMETHASONE 4 MG TABLET (FP) PO SCH ×4 (06:37→23:10)
[2017-07-31 07:34] LABS: MCH 25.9 pg (25.7-33.7); MCHC 32.4 g/dl (32.0-35.9); MEAN CELL VOLUME 79.8 fl (80-96); PLATELET COUNT 472 K/MM3 (134-434); RDW 14.9 % (11.9-15.9); WHITE BLOOD COUNT 23.8 K/mm3 (4.0-10.0)
[2017-07-31 08:17] LABS: ALBUMIN 2.7 g/dl (3.4-5.0); ALK PHOS 388 U/L (45-117); ANION GAP 13 (8-16); BILIRUBIN,TOTAL 0.4 mg/dL (0.2-1.0); CALCIUM 8.6 mg/dL (8.5-10.1); CO2 26 mmol/L (21-32); CREATININE 0.8 mg/dL (0.7-1.3); GLUCOSE,RANDOM 145 mg/dL (74-106); SGOT/AST 19 U/L (15-37); SGPT/ALT 42 U/L (12-78); TOT PROT 6.3 g/dl (6.4-8.2)
--- NOTE | 2017-07-31 09:05 | PN ---
Progress Note, Physician Chief Complaint: Head ache better History of Present Illness: RT tolerated well - Current Medication List Current Medications: Active Medications Acetaminophen/Codeine Phosphate (Tylenol # 3 -) 2 tab PO Q6H PRN Last Admin: 07/30/17 08:56 Dose: 2 tab Dexamethasone (Decadron -) 4 mg PO Q6HPO [facility] Last Admin: 07/31/17 06:37 Dose: 4 mg Pantoprazole Sodium (Protonix -) 40 mg PO DAILY [facility] Last Admin: 07/30/17 13:10 Dose: Not Given Polyethylene Glycol (Miralax (For Daily Use) -) 17 gm PO DAILY [facility] Last Admin: 07/30/17 16:16 Dose: 17 grams - Objective Vital Signs: Vital Signs Temperature 98.3 F 07/31/17 05:32 Pulse Rate 85 07/31/17 05:32 Respiratory Rate 20 07/31/17 05:32 Blood Pressure 127/59 07/31/17 05:32 O2 Sat by Pulse Oximetry (%) 96 07/30/17 21:00 Constitutional: Yes: Calm Eyes: Yes: WNL HENT: Yes: WNL Neck: Yes: WNL Cardiovascular: Yes: WNL Respiratory: Yes: WNL Gastrointestinal: Yes: WNL ...Rectal Exam: Yes: WNL Genitourinary: Yes: WNL Breast(s): Yes: WNL Extremities: Yes: WNL Edema: No Integumentary: Yes: WNL Neurological: Yes: Alert Labs: CBC, BMP 07/31/17 06:00 07/31/17 06:00 INR, PTT INR 1.15 (0.82-1.09) H 07/24/17 06:00 Assessment/Plan High WBC may be due to steroids
[2017-07-31 09:27] LABS: TOTAL CELLS COUNTED 100
[2017-07-31 09:28] LABS: METAMYELOCYTE 1 % (0-2)
[2017-07-31 09:34] LABS: PLATELET ESTIMATE SLT INCREASED (NORMAL)
[2017-07-31] MEDS: PANTOPRAZOLE 40 MG TABLET (FP) PO SCH (11:55)
[2017-07-31] MEDS ORDERED: ONDANSETRON 8 MG TABLET (FP) PO PRN (13:02)
--- NOTE | 2017-07-31 13:05 | PN ---
Progress Note (short form) - Note Progress Note: Patient seen and examined this am. tolerating rt well. requests that he get all appts written when he is to start chemo O/E: General: No acute distress HEENT: NCAT Lungs: CTA B/l Abdomen: soft NT ND Extremities: no CCE Last Vital Signs Temp Pulse Resp BP Pulse Ox 97 F L 92 H 18 146/79 96 07/26/17 10:33 07/26/17 10:33 07/26/17 10:33 07/26/17 10:33 07/25/17 21:00 CBC, BMP 07/24/17 06:00 07/24/17 06:00 Current Medications Generic Name Dose Route Start Last Admin Trade Name Freq PRN Reason Stop Dose Admin Acetaminophen/Codeine Phosphate 2 tab 07/26/17 03:06 Tylenol # 3 - PO Q6H PRN PAIN Dexamethasone Sodium Phosphate 4 mg 07/23/17 03:00 07/26/17 10:23 Decadron Injection - IVPB 4 mg Q6H-IV PIOTR Administration Pantoprazole Sodium 40 mg 07/23/17 10:00 07/26/17 10:23 Protonix - PO 40 mg DAILY PIOTR Administration Assessment/Plan: 71 y/o patient with recurrent bladder cancer s/p liver biopsy, path + urothelial metastasis. Recurrent bladder ca with mets to brain, calvarium/skeleton, liver, lung, nodes. Palliative RT to parietal calvarial and cerebellar mets likely dc on saturday with OP f/u. Cont decadron and analgesics, neurologic monitoring leucocytosis from dexamethasone. stool softeners
[2017-07-31] MEDS: POLYETHYLENE GLYCOL 3350 119 GM BTL PO SCH (18:04)
[2017-08-01] MEDS: DEXAMETHASONE 4 MG TABLET (FP) PO SCH ×4 (06:08→23:08)
--- NOTE | 2017-08-01 08:52 | PN ---
Progress Note, Physician Chief Complaint: Upper back pain History of Present Illness: RT on progress - Current Medication List Current Medications: Active Medications Acetaminophen/Codeine Phosphate (Tylenol # 3 -) 2 tab PO Q6H PRN Last Admin: 07/30/17 08:56 Dose: 2 tab Dexamethasone (Decadron -) 4 mg PO Q6HPO [facility] Last Admin: 08/01/17 06:08 Dose: 4 mg Ondansetron HCl (Zofran -) 8 mg PO Q8H PRN PRN Reason: NAUSEA AND/OR VOMITING Pantoprazole Sodium (Protonix -) 40 mg PO DAILY [facility] Last Admin: 07/31/17 11:55 Dose: 40 mg Polyethylene Glycol (Miralax (For Daily Use) -) 17 gm PO DAILY [facility] Last Admin: 07/31/17 18:04 Dose: 17 grams - Objective Vital Signs: Vital Signs Temperature 98.5 F 08/01/17 05:45 Pulse Rate 87 08/01/17 05:45 Respiratory Rate 20 08/01/17 05:45 Blood Pressure 125/90 08/01/17 05:45 O2 Sat by Pulse Oximetry (%) 96 07/31/17 21:00 Constitutional: Yes: No Distress Eyes: Yes: WNL HENT: Yes: WNL Neck: Yes: WNL Cardiovascular: Yes: WNL Respiratory: Yes: Regular, CTA Bilaterally Gastrointestinal: Yes: WNL ...Rectal Exam: Yes: WNL Genitourinary: Yes: Other (Iliostomy bag working well) Musculoskeletal: Yes: WNL Edema: No Neurological: Yes: Alert ...Motor Strength: WNL Labs: CBC, BMP 07/31/17 06:00 07/31/17 06:00 INR, PTT INR 1.15 (0.82-1.09) H 07/24/17 06:00 Assessment/Plan Continue same trt
[2017-08-01] MEDS: PANTOPRAZOLE 40 MG TABLET (FP) PO SCH (09:34)
[2017-08-01] MEDS: ACETAMINOPHEN WITH CODEINE 300MG/30MG TABLET PO PRN ×2 (12:10→23:08)
--- NOTE | 2017-08-01 14:17 | PN ---
Progress Note (short form) - Note Progress Note: Patient seen and examined this am. tolerating rt well. just returned from RT O/E: General: No acute distress HEENT: NCAT , ++Thrush Lungs: CTA B/l Abdomen: soft NT ND Extremities: no CCE Last Vital Signs Temp Pulse Resp BP Pulse Ox 98.5 F 87 20 125/90 96 08/01/17 05:45 08/01/17 05:45 08/01/17 05:45 08/01/17 05:45 07/31/17 21:00 CBC, BMP 07/31/17 06:00 07/31/17 06:00 Current Medications Generic Name Dose Route Start Last Admin Trade Name Freq PRN Reason Stop Dose Admin Acetaminophen/Codeine Phosphate 2 tab 07/29/17 06:14 08/01/17 12:10 Tylenol # 3 - PO 2 tab Q6H PRN Administration Dexamethasone 4 mg 07/30/17 18:00 08/01/17 12:10 Decadron - PO 4 mg Q6HPO PIOTR Administration Fluconazole 150 mg 08/01/17 14:14 Diflucan - PO 08/01/17 14:15 ONCE ONE Nystatin 500,000 units 08/01/17 18:00 Nystatin Oral Suspension - PO Q6HPO PIOTR Ondansetron HCl 8 mg 07/31/17 13:02 Zofran - PO Q8H PRN NAUSEA AND/OR VOMITING Pantoprazole Sodium 40 mg 07/23/17 10:00 08/01/17 09:34 Protonix - PO 40 mg DAILY PIOTR Administration Polyethylene Glycol 17 gm 07/30/17 14:45 07/31/17 18:04 Miralax (For Daily Use) - PO 17 grams DAILY PIOTR Administration Assessment/Plan: 71 y/o patient with recurrent bladder cancer s/p liver biopsy, path + urothelial metastasis. Recurrent bladder ca with mets to brain, calvarium/skeleton, liver, lung, nodes. Palliative RT to parietal calvarial and cerebellar mets likely dc on saturday with OP f/u. RT will be done on 08/12. Then will need two week break prior to commencing chemo, pt understands Cont decadron and analgesics, neurologic monitoring leucocytosis from dexamethasone. thrush today, give one dose diflu and give nystatin swish stool softeners
[2017-08-01] MEDS ORDERED: FLUCONAZOLE 100 MG TABLET (UD) PO ONE ×2 (15:00→16:45)
--- NOTE | 2017-08-01 15:56 | PN ---
Progress Note (short form) - Note Progress Note: Radiation Oncology Less headaches. Neurologically stable. Recurrent bladder ca with mets to brain, calvarium/skeleton, liver, lung, nodes. Tolerating palliative RT to calvarial and brain mets. Cont po decadron, analgesics, neurologic monitoring. May cont outpatient RT after tomorrow's tx. Will cont RT.
[2017-08-01] MEDS: NYSTATIN 500,000 UNITS/5 ML SUSPENSION PO SCH ×2 (17:24→23:08)
[2017-08-02] MEDS: DEXAMETHASONE 4 MG TABLET (FP) PO SCH ×2 (06:07→12:41)
[2017-08-02] MEDS: NYSTATIN 500,000 UNITS/5 ML SUSPENSION PO SCH ×2 (06:08→12:41)
--- NOTE | 2017-08-02 09:02 | DS ---
Physical Examination Vital Signs: Vital Signs Temperature 97.9 F 08/02/17 05:44 Pulse Rate 96 H 08/02/17 05:44 Respiratory Rate 20 08/02/17 05:44 Blood Pressure 154/86 08/02/17 05:44 O2 Sat by Pulse Oximetry (%) 95 08/01/17 21:00 Findings/Remarks: Admitted with mets from bladder Ca to brain ,liver and bones On palliative Rt to brain and calvarium Head ache is better on decadron and tylenol#3 Labs: CBC, BMP 07/31/17 06:00 07/31/17 06:00 Discharge Summary Reason For Visit: MALIGNANT NEOPLASM METASTATIC FROM BLADDER Current Active Problems Confusion (Acute) Headache (Acute) Malignant neoplasm metastatic from bladder (Acute) Condition: Improved - Instructions Referrals: Mirella Lee MD [Primary Care Provider] - - Home Medications Comprehensive Discharge Medication List: Ambulatory Orders NK [No Known Home Medication] 06/12/16
[2017-08-02] MEDS: POLYETHYLENE GLYCOL 3350 119 GM BTL PO SCH (09:51)
[2017-08-02] MEDS: PANTOPRAZOLE 40 MG TABLET (FP) PO SCH (09:51)
--- NOTE | 2017-08-02 10:32 | PN ---
Progress Note (short form) - Note Progress Note: Patient seen and examined this am. tolerating rt well. awaiting RT O/E: General: No acute distress HEENT: NCAT , thrush improved than better. Lungs: CTA B/l Abdomen: soft NT ND Extremities: no CCE Last Vital Signs Temp Pulse Resp BP Pulse Ox 98.5 F 87 20 125/90 96 08/01/17 05:45 08/01/17 05:45 08/01/17 05:45 08/01/17 05:45 07/31/17 21:00 CBC, BMP 07/31/17 06:00 07/31/17 06:00 Current Medications Generic Name Dose Route Start Last Admin Trade Name Freq PRN Reason Stop Dose Admin Acetaminophen/Codeine Phosphate 2 tab 07/29/17 06:14 08/01/17 12:10 Tylenol # 3 - PO 2 tab Q6H PRN Administration Dexamethasone 4 mg 07/30/17 18:00 08/01/17 12:10 Decadron - PO 4 mg Q6HPO PIOTR Administration Fluconazole 150 mg 08/01/17 14:14 Diflucan - PO 08/01/17 14:15 ONCE ONE Nystatin 500,000 units 08/01/17 18:00 Nystatin Oral Suspension - PO Q6HPO PIOTR Ondansetron HCl 8 mg 07/31/17 13:02 Zofran - PO Q8H PRN NAUSEA AND/OR VOMITING Pantoprazole Sodium 40 mg 07/23/17 10:00 08/01/17 09:34 Protonix - PO 40 mg DAILY PIOTR Administration Polyethylene Glycol 17 gm 07/30/17 14:45 07/31/17 18:04 Miralax (For Daily Use) - PO 17 grams DAILY PIOTR Administration Assessment/Plan: 71 y/o patient with recurrent bladder cancer s/p liver biopsy, path + urothelial metastasis. Recurrent bladder ca with mets to brain, calvarium/skeleton, liver, lung, nodes. palliative RT until 08/12 d/c today d/c with dex, tylenol, nystatin swish and swallow gave hims appt in the office 08/15 1030am explained to him in detail appreciate pal care involvement. d/w
--- NOTE | 2017-08-02 12:50 | PN ---
Progress Note (short form) - Note Progress Note: Radiation Oncology Less headaches. No other complaints. Awaits discharge home. Neurologically stable. Recurrent bladder ca with mets to brain, calvarium/skeleton, liver, lung, nodes. Tolerating palliative RT to calvarial and brain mets. Cont po decadron, analgesics, neurologic monitoring. Will cont outpatient RT on Saturday.
[2017-08-02 15:02] VITALS: BP 126/68; PULSE 101; TEMP 98.1
== END 2017-08-02 15:25 | disposition home or self-care (01) | DRG 54 ==
LOC: JER 13:55 → JERBED 18:21 → J7W 22:38
PROVIDERS: ADMIT Internal Medicine; ATTEND Internal Medicine
PROC: 0FB03ZX Excision of Liver, Percutaneous Approach, Diagnostic (ICD-10-PCS; principal; 2017-07-24)
PROC: D0Y07ZZ Contact Radiation of Brain (ICD-10-PCS; 2017-07-30)
DX: C79.31 Secondary malignant neoplasm of brain (principal); G93.6 Cerebral edema; C78.00 Secondary malignant neoplasm of unspecified lung; C78.7 Secondary malignant neoplasm of liver and intrahepatic bile duct; C79.51 Secondary malignant neoplasm of bone; B37.0 Candidal stomatitis; Z87.891 Personal history of nicotine dependence; C67.9 Malignant neoplasm of bladder, unspecified; R59.0 Localized enlarged lymph nodes; C61 Malignant neoplasm of prostate
CPT/HCPCS: 36415; 70490-TC; 71250-TC; 74176-TC; 76942-TC; 80053; 81003; 81015; 85025; 85027; 85610; 85730; 87070; 87075; 87205; 87899; 88305-TC; 99283-25

== ENCOUNTER → 2017-08-28 | Day surgery (SDC) | payer BC, OTHER ==
[~2017-08-28] MED LIST: CARBOPLATIN IVPB ONE; DEXAMETHASONE INJECTION 10 MG in SODIUM CHLORIDE 50 ML IVPB ONE; GEMCITABINE HCL 1,482 MG in SODIUM CHLORIDE 250 ML IV ONE; PALONOSETRON HCL 0.25 MG in SODIUM CHLORIDE 50 ML IVPB ONE; SODIUM CHLORIDE 250 ML IV ONE; SODIUM CHLORIDE IVPB ONE
[2017-08-28 10:54] VITALS: BP 100/60; PULSE 69; TEMP 98.8
[2017-08-28 11:16] LABS: BASO % 0.3 % (0-2.0); MCH 25.9 pg (25.7-33.7); MCHC 31.7 g/dl (32.0-35.9); MEAN CELL VOLUME 81.8 fl (80-96); NEUT % 97.2 % (42.8-82.8); PLATELET COUNT 240 K/MM3 (134-434); RDW 17.6 % (11.9-15.9); WHITE BLOOD COUNT 22.5 K/mm3 (4.0-10.0)
[2017-08-28 11:45] LABS: ANION GAP 12 (8-16); BILIRUBIN,DIRECT 0.3 mg/dL (0.0-0.2); CALCIUM 8.5 mg/dL (8.5-10.1); CO2 23 mmol/L (21-32); CREATININE 1.4 mg/dL (0.7-1.3); GLUCOSE,RANDOM 294 mg/dL (74-106); MAGNESIUM 2.3 mg/dL (1.8-2.4); SGOT/AST 27 U/L (15-37); SGPT/ALT 33 U/L (12-78)
[2017-08-28 11:47] LABS: ALK PHOS 413 U/L (45-117); BILIRUBIN,TOTAL 0.7 mg/dL (0.2-1.0)
== END | disposition home or self-care (01) ==
LOC: JONCCHEMO 06:49
PROVIDERS: ATTEND Internal Medicine Hematology & Oncology
DX: Z53.8 Procedure and treatment not carried out for other reasons (principal)
CPT/HCPCS: 36415; 80053; 80076; 83735; 85025; 96413